=== PATIENT | male | born 1940 | race Caucasian/White ===

== ENCOUNTER → 2016-12-04 10:42 | Outpatient (CLI) | payer MEDICARE ==
[2016-08-06 10:56] VITALS: BMI 38.4
[~2016-12-04 10:42] MED LIST: ADVIL200 MG PO; BAYER ASPIRIN325 MG PO; BP MED; CARDIZEM CD180 MG PO; CLARITIN 10 MG10 MG PO; HYDROCODONE-APA1 TAB PO; LANTUS INSULIN10 ML SC; LIPITOR40 MG PO; MINOCIN100 MG PO; MORPHINE IMMEDI15 MG PO; NIASPAN750 MG PO; NOVOLOG100 U/M1 SC; OMEPRAZOLE20 M1 PO; PROBIOTIC1 EAC1 PO; TRICOR145 MG PO; ULTRAM50 MG PO; VIBRAMYCIN 100100 MG PO; ZESTRIL10 MG PO
== END | disposition home or self-care (01) ==
LOC: D.RT 10:42
DX: J45.909 Unspecified asthma, uncomplicated (principal)

== ENCOUNTER 2017-06-07 10:30 | Emergency (ER) | payer MEDICARE ==
[2016-08-06 10:56] VITALS: BMI 38.4
[2017-06-07 11:10] LABS: BASOPHILS 0.2 % (0-2); EOSINOPHILS 1.7 % (0-7); HEMOGLOBIN 14.3 g/dL (13.5-17.5); IMMATURE GRANULOCYTES 0.4 % (0-5); MCH 33.3 pg (26.0-34.0); MCV 97.9 fL (80.0-100.0); MEAN PLATELET VOLUME 10.7 fL (7.4-10.4); MONOCYTES 7.1 % (2-11); NEUTROPHILS 72.6 % (40-80); RBC 4.29 10x6/uL (4.20-6.10); RDW 13.6 % (11.5-14.5); WBC 12.1 10x3/uL (4.8-10.8)
[2017-06-07 11:13] LABS: PLATELET COUNT 242 10x3/uL (130-400)
[2017-06-07 11:22] LABS: APPEARANCE HAZY (CLEAR); BACTERIA FEW /hpf (NONE SEEN); BILIRUBIN NEGATIVE (NEGATIVE); COLOR YELLOW (YELLOW); EPITHELIAL CELLS OCC /hpf (0-5); GLUCOSE 500 mg/dL (NEGATIVE); KETONE SMALL mg/dL (NEGATIVE); LEUKOCYTE ESTERASE TRACE (NEGATIVE); MUCUS <1+ /lpf (NONE SEEN); NITRITE NEGATIVE (NEGATIVE); PROTEIN NEGATIVE (NEGATIVE); UROBILINOGEN NORMAL (NORMAL)
[2017-06-07 11:30] LABS: ANION GAP 13.7 mmol/L (8-16); BILIRUBIN - TOTAL 0.4 mg/dL (0.2-1.3); CALCIUM 11.3 mg/dL (8.5-10.1); CARBON DIOXIDE 27.1 mmol/L (21.0-32.0); CREATININE - SERUM 1.8 mg/dL (0.6-1.3); POTASSIUM - SERUM 3.8 mmol/L (3.5-5.1); PROTEIN - SERUM 7.1 g/dL (6.4-8.2)
== END 2017-06-07 12:22 | disposition left against medical advice (07) ==
LOC: D.ER 10:30
PROVIDERS: Emergency Medicine
DX: R10.30 Lower abdominal pain, unspecified (principal)

== ENCOUNTER 2017-07-08 05:43 | Day surgery (SDC) | payer MEDICARE ==
[2017-07-07 10:44] LABS: ANION GAP 14.3 mmol/L (8-16); CALCIUM 10.2 mg/dL (8.5-10.1); CARBON DIOXIDE 27.7 mmol/L (21.0-32.0); CREATININE - SERUM 1.4 mg/dL (0.6-1.3)
[2017-07-07 10:59] LABS: HEMATOCRIT 41.2 % (42.0-54.0); MCH 33.3 pg (26.0-34.0); MCV 97.9 fL (80.0-100.0); MEAN PLATELET VOLUME 11.1 fL (7.4-10.4); RBC 4.21 10x6/uL (4.20-6.10); RDW 13.5 % (11.5-14.5)
[~2017-07-08 05:43] MED LIST changes: -BP MED; +CELEBREX200 MG PO; +KLONOPIN0.5 MG PO; +LIPITOR20 MG PO; +NASONEX NASAL S17 GM NS; +REQUIP0.5 MG PO; +SINGULAIR10 MG PO; +SYMBICORT 16010.2 GM INH; +TAZTIA XT360 MG PO; +TRAZODONE HCL50 MG PO; +VITAMIN D31000 UNIT PO
[2017-07-08 06:04] VITALS: BP 149/89; BMI 36.3
[2017-07-08] MEDS ORDERED: PERCOCET 10/3251 TA1 PO (09:44)
--- NOTE | 2017-07-08 11:09 | NUR ---
1020 TO ROOM FROM RR DROWSY AND COMBATIVE FADUMO HELPING PT TO USE BATHROOM,VOIDED
--- NOTE | 2017-07-08 11:11 | NUR ---
WANTING TO GET UP AND SIT ON SIDE OF BED , INFORMED THAT WAS NOT SAFE, PRT CUSSING DOC YELLING , FAMILY AT BEDSIDE, WITH HELP OF LUIS ARMANDO PT SAT UP ON SIDE OF BED, ASKING TO BE DISCHARGE HOME, INFORMED HE NEEDED TO STAY AT LEAST ONE HOUR,REFUSING, IV REMOVED BY RAMBO REYES WITH CATHER TIP INTACT HELD PRESURE TO AREA.
--- NOTE | 2017-07-08 11:21 | NUR ---
AWAKE AND ALERT BEING HELP TO GET DRESS BY LUIS ARMANDO
--- NOTE | 2017-07-12 11:28 | OP ---
PATIENT NAME: MARU CARUSO MEDICAL RECORD: [id number] :40 LOCATION:[facility] ADMISSION DATE: SURGEON: ALEX MUELLER MD DATE OF OPERATION: 07/08/2017 PREOPERATIVE DIAGNOSES: Rotator cuff tear of the right shoulder with impingement syndrome, acromioclavicular arthritis, and biceps tendonitis. POSTOPERATIVE DIAGNOSES: Rotator cuff tear of the right shoulder with impingement syndrome, acromioclavicular arthritis, and biceps tendonitis. PROCEDURES: Right shoulder arthroscopy, arthroscopic rotator cuff repair, arthroscopic biceps tenodesis, arthroscopic distal clavicle excision, arthroscopic subacromial decompression, acromioplasty, and bursectomy. SURGEON: Alex Mueller MD ANESTHESIA: General. INTRAOPERATIVE COMPLICATIONS: None. SUMMARY OF PATHOLOGIC FINDINGS: The patient had a tear essentially from the subscapularis-supraspinatus tendinous junction all the way around to the infraspinatus-teres minor junction. This resulted in multiple points of fixation including SpeedBridge as well as others for reapproximation of the ____ rotator cuff back to its insertion point on the greater tuberosity along with reapproximation of the infraspinatus. Very large profound anterior acromion bone hook was noted along with acromioclavicular arthritis. Biceps tendinitis was profound. OPERATIVE SUMMARY IN DETAIL: After obtaining the appropriate preoperative orthopedic surgery consent as well as anesthetic consultation, evaluation, and clearance, the patient was brought to the operating room and placed on the operating table in supine position. After adequate general laryngeal mask airway anesthesia was administered, the patient was placed in the left lateral decubitus position. All pressure points were well padded to include down leg peroneal pad as well as axillary roll. The patient was held firmly to the operating table using the vacuum pack suction system. The right upper extremity and shoulder were prepped and draped in routine sterile fashion. The arm was held in the Arthrex traction boom at 30 degrees of forward flexion, 30 degrees of abduction, and 10 pounds of traction laterally. Arthroscopy was established in the glenohumeral joint from a posterior portal. Anterior portal was established in the anterior safe interval. Diagnostic arthroscopy did reveal the above findings. At this point, a small accessory incision was created and biceps tendon was cut after sutures were placed through it. It was then tenodesed in the midportion of the bicipital groove using a #9 Arthrex biceps tenodesis screw. The suture protruding from the screw was utilized for reapproximation of the subscapularis-supraspinatus corner, resulted in good reapproximation. These tails were passed and then anchored with a 4.75 SwiveLock from Arthrex. At this point, the march down technique was utilized. The tails from the 4.75 were then placed more posterior into the supraspinatus and anchored laterally with a 5.5 SwiveLock. This was repeated again. At this point, the rotator cuff was repaired back to the original crux ____ where an Arthrex SpeedBridge was then put into place, bringing the residual of the supraspinatus tendon back over the humeral head with good reapproximation. The OPERATIVE REPORT [id number] MARU CARUSO rift between the infraspinatus and teres minor was closed with a #2 FiberTape in a [id number] fashion. Having completed this, subacromial decompression was performed to the acromioclavicular joint and the distal clavicle was excised for 1 cm. Arthroscopy portals and accessory portals were closed in routine interrupted fashion. Sterile dressings were applied. The patient was awakened and taken to the recovery room in stable condition. All final needle and sponge counts were correct. TRANSINT:[id number] Voice Confirmation ID: [id number] DOCUMENT ID: [id number] ALEX MUELLER MD at 1128 CC: [id number] DICTATION DATE: 07/08/17 0949 AUTO INSPECTION SPECIALIST: 07/08/17 1233 [facility] 07/08/17 [address] [place] [address]
== END 2017-07-08 11:30 | disposition home or self-care (01) ==
LOC: D.OPS 05:43
PROVIDERS: Anesthesiology
DX: M75.101 Unspecified rotator cuff tear or rupture of right shoulder, not specified as traumatic (principal); M75.41 Impingement syndrome of right shoulder; M13.811 Other specified arthritis, right shoulder; M75.21 Bicipital tendinitis, right shoulder; Z01.812 Encounter for preprocedural laboratory examination

== ENCOUNTER 2017-07-08 19:15 | Emergency (ER) | payer MEDICARE ==
[2017-07-08 06:04] VITALS: BMI 36.3
[~2017-07-08 19:15] MED LIST changes: +PERCOCET 10/3251 TA1 PO
== END 2017-07-08 20:43 | disposition home or self-care (01) ==
LOC: D.ER 19:15
DX: R33.9 Retention of urine, unspecified (principal); J45.909 Unspecified asthma, uncomplicated; I10 Essential (primary) hypertension; E11.9 Type 2 diabetes mellitus without complications

== ENCOUNTER 2017-07-09 05:58 | Emergency (ER) | payer MEDICARE ==
[2017-07-08 06:04] VITALS: BMI 36.3
== END 2017-07-09 07:33 | disposition home or self-care (01) ==
LOC: D.ER 05:58
DX: R33.9 Retention of urine, unspecified (principal)

== ENCOUNTER → 2018-01-20 08:55 | Outpatient (CLI) | payer MEDICARE | END | disposition home or self-care (01) | LOC: D.CT 08:55 | DX: R10.9 Unspecified abdominal pain (principal) ==

== ENCOUNTER → 2018-04-12 14:22 | Outpatient (CLI) | payer MEDICARE | END | disposition home or self-care (01) | LOC: D.MRI 14:22 | DX: M54.16 Radiculopathy, lumbar region (principal) ==

== ENCOUNTER → 2018-07-18 12:54 | Outpatient (CLI) | payer MEDICARE | END | disposition home or self-care (01) | LOC: D.RT 12:54 | DX: J45.909 Unspecified asthma, uncomplicated (principal) ==

== ENCOUNTER → 2019-02-08 16:34 | Outpatient (CLI) | payer MEDICARE | END | disposition home or self-care (01) | LOC: D.RAD 16:34 | PROVIDERS: ATTEND Internal Medicine Pulmonary Disease | DX: R06.2 Wheezing (principal) ==

== ENCOUNTER → 2019-06-20 10:21 | Outpatient (CLI) | payer MEDICARE ==
--- NOTE | 2019-06-23 15:34 | ST ---
PATIENT:MARU CARUSO MEDICAL RECORD: [id number] SEX: M LOCATION:[facility] ORDER #: ADMISSION DATE: 06/20/19 AGE OF PATIENT: 78 REFERRING PHYSICIAN: INTERPRETING PHYSICIAN: PATRICIA MEAD MD DATE OF SERVICE: 06/20/2019 INDICATION: Angina, shortness of breath, hypertension, hyperlipidemia, and diabetes. He was exercised on standard Lexiscan protocol with 33 mCi of sestamibi injected at peak stress, 11 mCi used previously for rest images. FINDINGS: Gated SPECT reveals preserved ejection fraction at 70% with good wall motioning and thickening and brightening throughout all segments. SPECT imaging: Cardiolite was used as myocardial perfusion agent. There is reversible ischemia inferiorly and laterally. This includes the basal, mid, apical inferior segments as well as the apical lateral and mid lateral, and basal lateral segments. The degree of reversibility is moderate. The amount of myocardium involved is large. OVERALL IMPRESSION: High risk nuclear stress test, large amount of myocardium involved and reversible ischemia laterally as well as inferiorly suggestive of multivessel coronary artery disease. TRANSINT:[id number] Voice Confirmation ID: [id number] DOCUMENT ID: [id number] PATRICIA MEAD MD at 1534 CC: ANNY HYLTON DO [id number] DICTATION DATE: 06/22/192201 STRAW BOSS: 06/23/19 0118 [facility] CLI 06/20/19 [id number] [place] [address]
== END | disposition home or self-care (01) ==
LOC: D.HCCARDIO 06-19 11:30
PROVIDERS: ATTEND Internal Medicine Interventional Cardiology
DX: I25.119 Atherosclerotic heart disease of native coronary artery with unspecified angina pectoris (principal)

== ENCOUNTER 2019-07-06 07:33 | Outpatient (CLI) | payer MEDICARE ==
[~2019-07-06] VITALS: Ht 180.3 cm; Wt 106.8 kg
--- NOTE | ~2019-07-06 | HEMODYNAMI ---
PATIENT:MARU CARUSO MEDICAL RECORD: [id number] : 40 LOCATION:[facility] ADMISSION DATE: 07/06/19 Generatedon:07/06/201913:33 Patient name: MARU CARUSO Patient #: [id number] SSN: [id number] : 1940 Date of study: 07/06/2019 Page: Of Hemodynamic Procedure Report Patient Data Patient Demographics Procedure consent was obtained First Name: MARU Gender: Male Last Name: SHADY : 1940 Middle Initial: W Age: 78 year(s) Patient #: [id number] Race: SSN: [id number] Additional ID: [id number] Contact details [address]: [address] [place] [address] State: [place] City: [place] Zip code: [address] Past Medical History Performed procedures and imaging results Date Procedure Procedure Results Comments Stress testing Positive->Intermediate with SPECT MPI risk Allergies: No known allergies Admission Admission Data Admission Date: 07/06/2019 Admission Time: 7:33 Arrival Date: 07/06/2019 Arrival Time: 0:00 Admit Source: Other Insurance Payor: Medicare Room #: D.CL04 [facility] #: [id number] Height (in.): 71 BSA: 2.29 (m2) Height (cm.): 180.34 BMI: 33.89 (kg/m2) Weight (lbs.): 243 Weight (kg.): 110.22 Lab Results Lab Result Date: 07/06/2019 Lab Result Time: 0:00 Biochemistry Name Units Result Min Max BUN mg/dl 24 --(----)-* 7 18 Creatinine mg/dl 1.3 --(---*)-- 0.6 1.3 eGFR ml/min 57 *-(----)-- 90 120 NONAFRICAN CBC Name Units Result Min Max Hematocrit % 40.4 -*(----)-- 42 54 Hemoglobin g/dl 13.6 --(*---)-- 13.5 17.5 Procedure Procedure Types Cath Procedure Diagnostic Procedure [facility] w/Coronaries Procedure Description Procedure Date Procedure Date: 07/06/2019 Procedure Start Time: 13:18 Procedure End Time: 13:31 Procedure Staff Name Function Maria Elena Amaya RT Monitor Fidelia Dejesus RN Nurse Torsten Clemons MD Performing Physician Ivet rOellana RT Scrub Indication CAD Procedure Data Cath Procedure Fluoroscopy Diagnostic fluoroscopy Total fluoroscopy Time: 1.4 time: 1.4 min min Diagnostic fluoroscopy Total fluoroscopy dose: 603 dose: 603 mGy mGy Contrast Material Contrast Material Type Amount (ml) Isovue 300 72 Entry Location Entry Primary Successful Side Size Upsize Upsize Entry Closure Succes sful Closure Location (Fr) 1 (Fr) 2 (Fr) Remarks Device Remarks Femoral Right 5 Fr Exoseal artery Estimated blood loss: 5 ml Diagnostic catheters Device Type Used For End Catheter Placement MULTIPACK JL 4.0 5Fr Procedure catheter MULTIPACK 3DRC 5Fr Procedure catheter MULTIPACK Pigtail 5 Fr Procedure catheter Procedure Complications No complications Procedure Medications Medication Administration Route Dosage Oxygen etCO2 Nasal cannula 2 l/min Lidocaine 2% added to field 20 Heparin Flush Bag added to field 2 bags (1000units/500ml NS) 0.9% NaCl I.V. 100 ml/hr Versed I.V. 2 mg Fentanyl I.V. 50 mcg Versed I.V. 2 mg Fentanyl I.V. 50 mcg Hemodynamics Rest BSA: 2.29 (m2) HGB: 13.6 (g/dl) O2 Consumption: Estimated: 255.01 (ml/min) O2 Co nsumption indexed: Estimated:111.36 (ml/min/m) Heart Rate: 62 (bpm) Pressure Samples Time Site Value (mmHg) Purpose Heart Use Rate(bpm) 13:25 AO 117/52(81) Pullback 75 13:25 LV 132/-6,20 Pullback 75 Gradients Valve Time Site 1 Site 2 Mean SEP/DFP Peak To Heart Use (mmHg) (sec/min) Peak Rate (mmHg) (bpm) Aortic 13:25 LV AO 35 18 15 75 132/-6,20 117/52(81) Calculations Valve P-P Mean Valve Index Valve Source Name Gradient Area Flow (cm2) Aortic 15 35 15 35 Snapshots Pre Cath Intra NCS Post Cath Vital Signs Time Heart Resp SPO2 etCO2 NIBP (mmHg) Rhythm Pain Sedation Rate (ipm) (%) (mmHg) Status Level (bpm) 13:09:46 64 15 95 0 155/77(100) NSR 0 (11) 10(A) , No pain 13:14:04 65 14 96 19.4 138/86(106) NSR 0 (11) 10(A) , No pain 13:19:12 63 11 95 21.6 131/79(98) NSR 0 (11) 10(A) , No pain 13:23:26 72 16 94 51.6 140/82(105) NSR 0 (11) 9(A) , No pain 13:29:47 76 16 95 19.4 122/82(112) NSR 0 (11) 10(A) , No pain Medications Time Medication Route Dose Verified Delivered Reason Notes Eff ectiveness by by 13:08:02 Oxygen etCO2 2 Torsten Buffie used for Nasal l/min St Paco Dejesus RN procedure cannula 13:08:08 Lidocaine 2% added 20ml Torsten Torsten for local to vial [facility] anesthetic field MD [place] 13:08:14 Heparin Flush added 2 Torsten Torsten used for Bag to bags [facility] procedure (1000units/500ml field MD [place] NS) 13:08:22 0.9% NaCl I.V. 100 Torsten Buffie Per ml/hr St Paco Dejesus RN physician 13:18:42 Versed I.V. 2 mg Torsten Buffie for St Paco Dejesus RN sedation 13:18:48 Fentanyl I.V. 50 Torsten Buff[address] for mcg [facility] Paco Dejesus RN sedation 13:22:01 Fentanyl I.V. 50 Torsten Buff[address] for mcg [facility] Paco Dejesus RN sedation 13:22:57 Versed I.V. 2 mg Torsten Buffie for St Paco Dejesus RN sedation Procedure Log Time Note 12:42:20 Informed consent obtained and on chart 12:42:37 Insurance Payor : Medicare 12:43:15 Arrival Date: 07/06/2019 12:00:00 AM 12:43:18 Admit Source: Other 12:43:28 Patient Height : 71 inches 12:43:33 Patient Weight : 243 lbs 12:47:48 Patient allergic to No known allergies 12:51:17 Lab Result : Creatinine 1.3 mg/dl 12:51:17 Lab Result : BUN 24 mg/dl 12:51:17 Lab Result : Hematocrit 40.4 % 12:51:17 Lab Result : Hemoglobin 13.6 g/dl 12:51:17 Lab Result : eGFR NONAFRICAN 57 ml/min 12:51:34 Diagnostic Cath Status : Elective 12:52:15 Indication : CAD 12:53:08 Procedure Status Elective Heart Cath (OP). 12:53:11 Fidelia Dejesus RN sent for patient. Start room use. 12:53:14 Time tracking: Regular hours (M-F 7:00 - 5:00) 12:53:22 Plan of Care:Hemodynamics will remain stable., Cardiac rhythm will remain stable., Comfort level will be maintained., Respiratory function will remain adequate., Patient/ family verbilizes understanding of procedure., Procedure tolerated without complication., Recovers from procedure without complications.. 13:01:01 Patient received from Pre/Post Procedure Room to CCL 1 Alert and oriented. Tansferred to table in Supine position. 13:01:03 Warm blankets applied, and yenny hugger turned on for patient comfort. 13:01:04 Correct patient and procedure confirmed by team. 13:01:05 ECG and BP/O2 sat monitors applied to patient. 13:07:33 Vital chart was started 13:08:02 Oxygen 2 l/min etCO2 Nasal cannula was administered by Fidelia Djeesus RN; used for procedure; Verbal order read back and verified. 13:08:08 Lidocaine 2% 20ml vial added to field was administered by Torsten Clemons MD; for local anesthetic; Verbal order read back and verified. 13:08:14 Heparin Flush Bag (1000units/500ml NS) 2 bags added to field was administered by Torsten Clemons MD; used for procedure; Verbal order read back and verified. 13:08:22 0.9% NaCl 100 ml/hr I.V. was administered by Fidelia Dejesus RN; Per physician; Verbal order read back and verified. 13:09:04 Baseline sample Acquired. 13:09:07 Rhythm: sinus bradycardia 13:11:18 Full Disclosure recording started 13:11:47 H&P Date Dictated: 06/13/2019 Within 30 days and on chart., H&P Addendum completed by physician on day of procedure. (MUST COMPLETE FOR ALL OUTPATIENTS). 13:11:49 Pre-procedure instructions explained to patient. 13:11:50 Pre-op teaching completed and patient verbalized understanding. 13:11:54 Family in patients room. 13:11:55 Patient NPO since Midnight. 13:11:59 Is patient on blood thinner?No 13:12:00 Patient diabetic? Yes. 13:12:01 If diabetic: On Metformin? No 13:12:05 Previous problem with sedation/anesthesia? No ? 13:12:07 Snore? Yes 13:12:08 Sleep apnea? Yes 13:12:09 Deviated septum? No 13:12:10 Opens mouth fully? Yes 13:12:12 Sticks out tongue? Yes 13:12:36 Airway obstruction? No ? 13:12:38 Dentures? No ? 13:12:43 Pre procedure: right dorsailis pedis pulse 1+ Palpable, but thready & weak; easily obliterated 13:12:47 Patient pain scale 0/10 ?. 13:12:54 IV patent on arrival in right antecubital with 0.9% NaCl at [facility]. 13:13:00 Lab results completed and on chart. 13:13:03 Right groin area was prepped with chlora-prep and draped in sterile fashion 13:13:04 Alarms reviewed by R. N. 13:13:05 Sharps counted by scrub and verified by R.N. 13:17:04 --------ALL STOP TIME OUT------ 13:17:05 Final Timeout: patient, procedure, and site verified with staff and physician. All members of the team are in agreement. 13:17:06 Right groin site verified by team. 13:17:09 Fire Safety Assessment: A--An alcohol-based skin anteseptic being used preoperatively., C--Open oxygen or nitrous oxide is being used., D--An ESU, laser, or fiber-optic light is being used. 13:17:12 Physical assessment completed. ASA score P 2 - A patient with mild systemic disease as per Torsten Clemons MD. 13:17:22 3a) 45-59 Moderately reduced kidney function. 13:17:25 Maximum allowable contrast dose (3.7 X eGFR X 0.75)158 ml. 13:17:28 Sedation plan: IV Moderate Sedation Medication:Versed, Fentanyl 13:18:24 Procedure started. 13:18:42 Versed 2 mg I.V. was administered by Fidelia Dejesus RN; for sedation; Verbal order read back and verified. 13:18:46 Local anesthetic to right femoral artery with Lidocaine 2% by Torsten Clemons MD.INITIAL ACCESS ONLY 13:18:48 Fentanyl 50 mcg I.V. was administered by Fidelia Dejesus RN; for sedation; Verbal order read back and verified. 13:19:04 Use device set Femoral Dx 13:19:04 ACIST Syringe (28763) opened to sterile field. 13:19:05 Bag Decanter (2002S) opened to sterile field. 13:19:06 ACIST Hand Control (07551) opened to sterile field. 13:19:07 ACIST Manifold (75635) opened to sterile field. 13:19:07 Tegaderm 4 x 4 (1626W) opened to sterile field. 13:19:08 Medline Cath Pack ([id number]) opened to sterile field. 13:19:09 DIAGNOSTIC Multipack 5Fr catheter set (AU1454) opened to sterile field. 13:19:10 SHEATH 5FR [place] (PQV525) opened to sterile field. 13:19:10 EMERALD Guide Wire (539-917) opened to sterile field. 13:19:16 Zero performed for pressure channel P1 13:19:25 A 5 Fr sheath was inserted into the Right Femoral artery 13:19:31 Zero performed for pressure channel P1 13:19:36 Zero performed for pressure channel P1 13:20:04 A MULTIPACK JL 4.0 5Fr catheter was advanced over the wire and used for Procedure. 13:22:01 Fentanyl 50 mcg I.V. was administered by Fidelia Dejesus RN; for sedation; Verbal order read back and verified. 13:22:14 LCA angiography performed. 13:22:28 Catheter removed. 13:22:41 A MULTIPACK 3DRC 5Fr catheter was advanced over the wire and used for Procedure. 13:22:57 Versed 2 mg I.V. was administered by Fidelia Dejesus RN; for sedation; Verbal order read back and verified. 13:23:52 RCA angiography performed. 13:23:52 Catheter removed. 13:24:17 A MULTIPACK Pigtail 5 Fr catheter was advanced over the wire and used for Procedure. 13:24:29 LV gram done using SEAMAN 13:24:31 Injector settings: Ml/sec: 10, Volume: 20, 13:24:49 LV hemodynamics recorded. 13:25:11 EF : 55 % 13:25:13 ACCDominant side:Left 13:25:16 EXOSEAL 5Fr (EX500) opened to sterile field. 13:26:09 Sheath removed intact; hemostasis achieved with Exoseal to the Right Femoral artery. 13:26:11 Procedure ended.(Physican Out) 13:27:42 Fluoroscopy time 01.40 minutes. 13:28:19 Flurop Dose total: 603 13:28:19 Fluoroscopy dose: 603 mGy 13:: Dose Area Product 06853 mGy/cm. 13::40 Contrast amount:Isovue 300 72ml. 13:28:43 Maximum allowable dose exceeded? No. 13:28:48 Sharps counted by scrub and verified by R.N. 13:28:53 Post-op/insertion site Right Femoral artery dressed using a 4 x 4 and Tegaderm. 13:29:12 Post-procedure physical assessment completed. ASA score P 3 - A patient with severe systemic disease as per Torsten Clemons MD. 13:29:42 Post procedure rhythm: sinus rhythm 13:29:44 Estimated blood loss: 5 ml 13:29:46 Post procedure instruction explained to patient.Patient verbalizes understanding. 13:29:46 Patient needs reinforcement of post procedure teaching. 13:31:17 Procedure and supply charges have been captured, reviewed, submitted and are correct. 13:31:21 Procedure Complication : No complications 13:31:24 Vital chart was stopped 13:31:24 See physician's report for complete and final results. 13:31:25 Report given to Pre/Post Procedure Room. 13:31:28 Patient transfered to Pre/Post Procedure Room with Bed. 13:31:30 Procedure ended. 13:31:30 Full Disclosure recording stopped 13:31:33 End room use (Document Last) 13:32:36 End room use (Document Last) 13:33:22 End room use (Document Last) Device Usage Item Name Manufacture Quantity Catalog Hospital Part Current Minimal L ot# / Number Charge Number Stock Stock Serial# Code ACIST Acist 1 10346 665529 189475 826192 20 Element Works (26517) Systems Inc Bag Microtek 1 757310 70064 337950 5 Decanter Medical Inc. () ACIST Hand Acist 1 97448 691912 993812 690890 5 Control Medical (89154) Systems Inc ACIST Acist 1 13954 260382 073920 092077 5 Manifold Medical (02580) Systems Inc Tegaderm 4 3M 1 1626W 581723 405030 180823 5 x 4 (1626W) Medline Medline 1 [id number] 581242 66244 042750 5 Cath Pack ([id number]) DIAGNOSTIC Cardinal 1 GQ3124 797146 99600 763025 30 Multipack Health 5Fr catheter set (XM8106) SHEATH 5FR Terumo 1 HQB904 335331 491399 985352 5 [place] (IKV532) EMERALD Cardinal 1 502-455 596227 492644 706906 5 Guide Wire Health (502455) MULTIPACK Cardinal 1 899550 5 JL 4.0 5Fr Health catheter MULTIPACK Cardinal 1 372698 5 3DRC 5Fr Health catheter MULTIPACK Cardinal 1 943037 5 Pigtail 5 Health Fr catheter EXOSEAL 5Fr Cardinal 1 EX500 048010 785876 228531 10 (EX500) Health Signature Audit [place] Stage Time Signature Unsigned Intra-Procedure 07/06/2019 Maria Elena Amaya 1:32:36 PM RT(R) Intra-Procedure 07/06/2019 Fidelia Dejesus RN 1:33:22 PM Intra-Procedure 07/06/2019 Torsten Hawk 1:33:49 PM Pac[address] [place] [address]
[2019-07-06 11:24] VITALS: BP 143/90; Ht 180.3 cm; Wt 106.8 kg
[2019-07-06 11:44] LABS: BASOPHILS 0.4 % (0-2); EOSINOPHILS 2.7 % (0-7); HEMATOCRIT 40.4 % (42.0-54.0); HEMOGLOBIN 13.6 g/dL (13.5-17.5); IMMATURE GRANULOCYTES 0.1 % (0-5); LYMPHOCYTES 27.9 % (15-50); MCH 31.8 pg (26.0-34.0); MCHC 33.7 g/dL (31.0-37.0); MCV 94.4 fL (80.0-100.0); MEAN PLATELET VOLUME 10.5 fL (7.4-10.4); MONOCYTES 7.7 % (2-11); NEUTROPHILS 61.2 % (40-80); PLATELET COUNT 243 10x3/uL (130-400); RBC 4.28 10x6/uL (4.20-6.10); RDW 13.8 % (11.5-14.5); WBC 7.7 10x3/uL (4.8-10.8)
[2019-07-06 12:08] LABS: ANION GAP 12.8 mmol/L (8-16); CALCIUM 9.5 mg/dL (8.5-10.1); CHOL - HDL RATIO 3.2 ratio (2.3-4.9); CREATININE - SERUM 1.3 mg/dL (0.6-1.3); LDL-HDL RATIO 1.9 ratio (1.5-3.5); POTASSIUM - SERUM 3.8 mmol/L (3.5-5.1)
--- NOTE | 2019-07-06 13:58 | NUR ---
RECEIVED PT FROM TV HOST, PT IS SLEEPING, AWAKENS EASILY. DRESSING CDI TO RIGHT GROIN, AREA IS SOFT AND NONTENDER. PEDAL PULSES PALPABLE. NSR, RATE IS 65. RESP WITH EASE ON O2 AT 2LPM VIA NC. HOB IS FLAT, BED LOCKED AND LOW. CALL LIGHT IN REACH.
--- NOTE | 2019-07-06 14:01 | NUR ---
DRESSING CDI, PEDAL PULSES PALPABLE, HOB IS FLAT. VSS, CALL LIGHT IN REACH.
--- NOTE | 2019-07-06 14:10 | NUR ---
PT SLEEPING, RESP WITH EASE ON O2 AT 2LPM VIA NC. DRESSING CDI, VSS. HOB IS FLAT.
--- NOTE | 2019-07-06 14:26 | NUR ---
DRESSING CDI, PEDAL PULSES PALPABLE. SINUS ROMMEL AT 56. RESP WITH EASE ON O2 AT 2LPM VIA NC.
--- NOTE | 2019-07-06 15:06 | NUR ---
HOB ELEVATED 30 DEGREES, DRESSING IS CDI TO RIGHT GROIN, AREA IS SOFT AND NONTENDER. PEDAL PULSES PALPABLE. PT AWAKENS EASILY ABND DENIES ANY C/O.
--- NOTE | 2019-07-06 15:54 | NUR ---
HOB HAS BEEN FULLY ELEVATED. PT TORITO SANDWICH AND PO FLUIDS, FALLS BACK TO SLEEP EASILY. DENIES ANY C/O. AWAITING A PHONE CALL FROM WITH INFORMATION FOR A FRIEND TO TAKE PT HOME FROM HOSPITAL.
--- NOTE | 2019-07-06 16:26 | NUR ---
PT HAS TORITO 100% OF SANDWICH. DENIES ANY C/O PAIN OR NAUSEA. DRESSING CDI TO RIGHT GROIN, PEDAL PULSES PALPABLE. IV DC'D WITH CATH INTACT AND ASSISTED PT WITH DRESSING FOR DC TO HOME. DC INSTRUCTIONS HAVE BEEN REVIEWED WITH PT WHO VERBALIZES UNDERSTANDING AND PT HAS WRITTEN COPIES. AWAITING PT'S RIDE HOME.
--- NOTE | 2019-07-06 17:05 | NUR ---
PT SITTING UP IN CHAIR IN ROOM, AWAITING FRIENDS TO PICK HIM UP. DENIES ANY C/O AT THIS TIME.
--- NOTE | 2019-07-06 17:46 | NUR ---
1722 PT HAS AMBULTED TO THE BATHROOM AND VOIDED QS. DENIES ANY C/O. PT ESCORTED TO PRIVATE AUTO VIA WC BY NURSE WITH FRIEND, MELIDA GIANLUCA, DRIVING HIM HOME. PT HAS ALL PERSONAL BELONGINGS AND DC INSTRUCTIONS UPON DISCHARGE.
--- NOTE | 2019-07-07 12:40 | OP ---
PATIENT NAME: MARU CARUSO MEDICAL RECORD: [id number] :40 LOCATION:D.[facility] ADMISSION DATE: SURGEON: LAZ SAVAGE MD DATE OF OPERATION: 07/06/2019 PROCEDURE: Left heart catheterization, selective coronary angiography, right femoral artery approach. CATHETERS: A 5-Italian sheath, 5/4 left and right Judkin's. 5/4 pig. The procedure was well tolerated. The patient was returned to [place]. Sheath removed. ExoSeal device placed. FINDINGS: Left ventriculography in 30-degree SEAMAN view: Normal wall motion, normal systolic function. CORONARY ANATOMY: LEFT MAIN: Left main is free of disease. LAD: The area of previous stenting is widely patent. No progression of [place]ed[place] disease. CIRCUMFLEX: No progression of [place] disease. RIGHT CORONARY ARTERY: Totally occluded. Fills well via left to right collaterals. IMPRESSION: Totally occluded right with good collateral flow, widely patent stent, no evidence of restenosis and no progression of [place] disease. TRANSINT:[id number] Voice Confirmation ID: [id number] DOCUMENT ID: [id number] LAZ SAVAGE MD at 1240 CC: [id number] DICTATION DATE: 07/06/19 1331 [place] ERECTOR: 07/06/19 1401 DEP CLI 07/06/19 [facility] [address] [facility] [place] [address]
== END 2019-07-06 17:22 | disposition home or self-care (01) ==
LOC: D.CATH 07:33 → D.CLR 10:58 → D.CATH 13:00
PROVIDERS: ATTEND Internal Medicine Interventional Cardiology
DX: I25.110 Atherosclerotic heart disease of native coronary artery with unstable angina pectoris (principal); R94.30 Abnormal result of cardiovascular function study, unspecified

== ENCOUNTER 2020-01-09 11:18 | Emergency (ER) | payer MEDICARE ==
[~2020-01-09] VITALS: Ht 180.3 cm; Wt 106.8 kg
[2020-01-09 11:28] VITALS: BP 118/62; Ht 180.3 cm; Wt 106.8 kg
== END 2020-01-09 12:27 | disposition home or self-care (01) ==
LOC: D.ER 11:18
DX: R06.02 Shortness of breath (principal); E11.9 Type 2 diabetes mellitus without complications; I10 Essential (primary) hypertension; J45.909 Unspecified asthma, uncomplicated; K21.9 Gastro-esophageal reflux disease without esophagitis; Z79.4 Long term (current) use of insulin; Z53.29 Procedure and treatment not carried out because of patient's decision for other reasons

== ENCOUNTER → 2020-01-15 09:54 | Outpatient (CLI) | payer MEDICARE ==
[2020-01-09 11:28] VITALS: BMI 32.8
--- NOTE | ~2020-01-15 | ST ---
PATIENT:MARU CARUSO MEDICAL RECORD: [id number] SEX: M LOCATION:[facility] ORDER #: ADMISSION DATE: 01/15/20 AGE OF PATIENT: 79 REFERRING PHYSICIAN: INTERPRETING PHYSICIAN: PATRICIA MEAD MD DATE OF SERVICE: 01/15/2020 INDICATION: Angina, coronary artery disease, and hypertension. She was exercised on standard Lexiscan protocol with 33 mCi of sestamibi injected at peak stress, 11 mCi used previously for rest images. FINDINGS: Gated SPECT reveals preserved ejection fraction at 67% with good wall motion and thickening and brightening throughout all segments. SPECT IMAGING: Cardiolite was used as myocardial perfusion agent. There is reversibility inferiorly. This includes the basal, mid, apical, and inferior segments. The degree of reversibility is moderate to severe. The amount of myocardium involved is moderate. OVERALL IMPRESSION: 1. This is an intermediate risk abnormal nuclear stress test with reversibility inferiorly. 2. Gated SPECT reveals a preserved ejection fraction greater than 60%. In this patient with ongoing symptomatology, the current scan does suggest the presence of hemodynamically significant coronary artery disease. TRANSINT:[id number] Voice Confirmation ID: [id number] DOCUMENT ID: [id number] PATRICIA MEAD MD CC: ANNY HYLTON DO [id number] DICTATION DATE: 01/16/20 1115 EDGER MACHINE SETTER: 01/16/201923 DEP CLI 01/15/20 [facility] [address] [place] [address]
== END | disposition home or self-care (01) ==
LOC: D.HCCARDIO 09:54
PROVIDERS: ATTEND Internal Medicine Cardiovascular Disease
DX: I25.10 Atherosclerotic heart disease of native coronary artery without angina pectoris (principal)

== ENCOUNTER 2020-01-23 10:55 | Outpatient (CLI) | payer MEDICARE ==
[~2020-01-23] VITALS: Ht 180.3 cm; Wt 107.7 kg
--- NOTE | ~2020-01-23 | HEMODYNAMI ---
PATIENT:MARU CARUSO MEDICAL RECORD: [id number] : 40 LOCATION:[facility] ADMISSION DATE: 01/23/20 Generatedon:01/23/202013:11 Patient name: MARU CARUSO Patient #: [id number] SSN: [id number] : 1940 Date of study: 01/23/2020 Page: Of Hemodynamic Procedure Report Patient Data Patient Demographics Procedure consent was obtained First Name: MARU Gender: Male Last Name: SHADY : 1940 Middle Initial: W Age: 79 year(s) Patient #: [id number] Race: SSN: [id number] Additional ID: [id number] Contact details [address]: [address] [place] [address] State: [place] City: [place] Zip code: [address] Past Medical History Allergies: No known allergies Admission Admission Data Admission Date: 01/23/2020 Admission Time: 10:55 Arrival Date: 01/23/2020 Arrival Time: 0:00 Admit Source: Other Insurance Payor: Medicare HIC #: [id number] Height (in.): 70.87 BSA: 2.27 (m2) Height (cm.): 180 BMI: 33.33 (kg/m2) Weight (lbs.): 238.1 Weight (kg.): 108 Lab Results Lab Result Date: 01/23/2020 Lab Result Time: 0:00 Biochemistry Name Units Result Min Max BUN mg/dl 25 --(----)-* 7 18 Creatinine mg/dl 1.3 --(---*)-- 0.6 1.3 eGFR ml/min 56 *-(----)-- 90 120 NONAFRICAN CBC Name Units Result Min Max Hematocrit % 39 *-(----)-- 42 54 Hemoglobin g/dl 12.5 *-(----)-- 13.5 17.5 Procedure Procedure Types Cath Procedure Diagnostic Procedure C [facility] w/Coronaries Sedation Charges Moderate Sedation up to 15 minutes Procedure Description Procedure Date Procedure Date: 01/23/2020 Procedure Start Time: 13:00 Procedure End Time: 13:08 Procedure Staff Name Function Torsten Clemons MD Performing Physician Antoinette Child RN Nurse Yesica Ambrose RT Scrub Maria Elena Amaya RT Plaster Maker Ivet Orellana RT Monitor Procedure Data Cath Procedure Fluoroscopy Diagnostic fluoroscopy Total fluoroscopy Time: 1 time: 1 min min Diagnostic fluoroscopy Total fluoroscopy dose: 403 dose: 403 mGy mGy Contrast Material Contrast Material Type Amount (ml) Isovue 370 60 Entry Location Entry Primary Successful Side Size Upsize Upsize Entry Closure Succes sful Closure Location (Fr) 1 (Fr) 2 (Fr) Remarks Device Remarks Femoral Right 5 Fr Exoseal artery Estimated blood loss: 5 ml Diagnostic catheters Device Type Used For End Catheter Placement MULTIPACK JL 4.0 5Fr Procedure catheter MULTIPACK 3DRC 5Fr Procedure catheter MULTIPACK Pigtail 5 Fr Procedure catheter Procedure Complications No complications Procedure Medications Medication Administration Route Dosage 0.9% NaCl I.V. 100 ml/hr Oxygen etCO2 Nasal cannula 2 l/min Lidocaine 2% added to field 20 Heparin Flush Bag added to field 2 bags (1000units/500ml NS) Versed I.V. 2 mg Fentanyl I.V. 50 mcg Fentanyl I.V. 50 mcg Hemodynamics Rest BSA: 2.27 (m2) HGB: 12.5 (g/dl) O2 Consumption: Estimated: 246.31 (ml/min) O2 Co nsumption indexed: Estimated:108.51 (ml/min/m) Heart Rate: 55 (bpm) Pressure Samples Time Site Value (mmHg) Purpose Heart Use Rate(bpm) 13:05 LV 205/-14,114 Snapshot 58 13:05 AO 143/58(92) Pullback 55 13:05 LV 150/15,32 Pullback 55 Gradients Valve Time Site 1 Site 2 Mean SEP/DFP Peak To Heart Use (mmHg) (sec/min) Peak Rate (mmHg) (bpm) Aortic 13:05 LV AO 21 15 7 55 150/15,32 143/58(92) Calculations Valve P-P Mean Valve Index Valve Source Name Gradient Area Flow (cm2) Aortic 7 21 7 21 Snapshots Pre Cath Intra NCS Post Cath Vital Signs Time Heart Resp SPO2 etCO2 NIBP (mmHg) Rhythm Pain Sedation Rate (ipm) (%) (mmHg) Status Level (bpm) 12:51:40 62 22 96 0 147/80(119) NSR 0 (11) 10(A) , No pain 12:56:06 52 21 97 15.1 145/71(100) SB 0 (11) 10(A) , No pain 13:01:05 55 22 98 21.9 Measuring SB 0 (11) 10(A) , No pain 13:01:20 48 17 98 27.2 145/73(120) SB 0 (11) 10(A) , No pain 13:05:44 55 16 98 11.3 151/75(123) SB 0 (11) 10(A) , No pain Medications Time Medication Route Dose Verified Delivered Reason Notes Eff ectiveness by by 12:51:03 0.9% NaCl I.V. 100 Torsten Antoinette used for ml/hr Kaci Mateusz procedure MD REYES 12:51:09 Oxygen etCO2 2 Torsten Antoinette used for Nasal l/min Kaci Mateusz procedure cannula MD REYES 12:51:13 Lidocaine 2% added 20ml Torsten Sarmiento for local to vial [facility] anesthetic field MD [place] 12:51:17 Heparin Flush added 2 Torsten [facility]sten [facility] ([facility]/500[facility] field MD [place] NS) 12:57:31 Versed I.V. 2 mg Torsten Antoinette for Kaci Mateusz sedation MD REYES 12:57:42 Fentanyl I.V. 50 Torsten Antoinette for mcg KaciPaco Child sedation MD REYES 13:03:35 Fentanyl I.V. 50 Torsten Antoinette for mcg KaciPaco Child sedation MD REYEShand spring repairer Log Time Note 12:21:50 Informed consent obtained and on chart 12:21:58 Arrival Date: 01/23/2020 12:00:00 AM 12:22:21 Insurance Payor : Medicare 12:22:28 Patient Height : 70.87 inches 12:22:33 Patient Weight : 238.1 lbs 12:24:03 Lab Result : eGFR NONAFRICAN 56 ml/min 12:24:03 Lab Result : Creatinine 1.3 mg/dl 12:24:03 Lab Result : BUN 25 mg/dl 12:24:03 Lab Result : Hematocrit 39 % 12:24:03 Lab Result : Hemoglobin 12.5 g/dl 12:33:46 Procedure Status Elective Heart Cath (OP). 12:33:48 Time tracking: Regular hours (M-F 7:00 - 5:00) 12:33:51 Plan of Care:Hemodynamics will remain stable., Cardiac rhythm will remain stable., Comfort level will be maintained., Respiratory function will remain adequate., Patient/ family verbilizes understanding of procedure., Procedure tolerated without complication., Recovers from procedure without complications.. 12:34:14 H&P Date Dictated: 01/10/2020 Within 30 days and on chart., H&P Addendum completed by physician on day of procedure. (MUST COMPLETE FOR ALL OUTPATIENTS). 12:34:23 Patient allergic to No known allergies 12:36:34 Maria Elnea Amaya RT(R) sent for patient. Start room use. 12:44:17 Patient received from Pre/Post Procedure Room to CCL 1 Alert and oriented. Tansferred to table in Supine position. 12:44:18 Warm blankets applied, and yenny hugger turned on for patient comfort. 12:44:18 Correct patient and procedure confirmed by team. 12:44:19 ECG and BP/O2 sat monitors applied to patient. 12:50:22 Admit Source: Other 12:50:25 Vital chart was started 12:50:25 Full Disclosure recording started 12:50:26 Pre-procedure instructions explained to patient. 12:50:27 Pre-op teaching completed and patient verbalized understanding. 12:50:29 Family unavailable. 12:50:31 Patient NPO since Midnight. 12:50:35 Is the patient allergic to Iodine/contrast media? No. 12:50:39 Was the patient premedicated? N/A 12:50:41 Is patient on blood thinner?No 12:50:43 Patient diabetic? Yes. 12:50:45 If diabetic: On Metformin? No 12:50:47 ----Pre-sedation anethsthesia assessment.---- 12:50:49 Previous problem with sedation/anesthesia? No ? 12:50:50 Snore? Yes 12:50:51 Sleep apnea? Yes 12:50:52 Deviated septum? No 12:50:53 Opens mouth fully? Yes 12:50:54 Sticks out tongue? Yes 12:51:03 0.9% NaCl 100 ml/hr I.V. was administered by Antoinette Child RN; used for procedure; Verbal order read back and verified. 12:51:09 Oxygen 2 l/min etCO2 Nasal cannula was administered by Antoinette Child RN; used for procedure; Verbal order read back and verified. 12:51:13 Lidocaine 2% 20ml vial added to field was administered by Torsten Clemons MD; for local anesthetic; Verbal order read back and verified. 12:51:17 Heparin Flush Bag (1000units/500ml NS) 2 bags added to field was administered by Torsten Clemons MD; used for procedure; Verbal order read back and verified. 12:51:33 Airway obstruction? No ? 12:51:36 Dentures? No ? 12:51:48 Pre procedure: right dorsailis pedis pulse 1+ Palpable, but thready & weak; easily obliterated 12:51:51 Patient pain scale 0/10 ?. 12:52:19 Lab results completed and on chart. 12:52:23 Stress Test: no; N/A ? 12:52:28 Right groin area was prepped with chlora-prep and draped in sterile fashion 12:52:32 Alarms reviewed by R. N. 12:52:32 Sharps counted by scrub and verified by R.N. 12:52:51 IV patent on arrival in right antecubital with 0.9% NaCl at KVO. 12:53:04 Baseline sample Acquired. 12:53:14 Rhythm: sinus bradycardia 12:53:19 Use device set Femoral Dx 12:53:20 ACIST Syringe (47697) opened to sterile field. 12:53:21 Bag Decanter (2002) opened to sterile field. 12:53:22 Medline Cath Pack ([id number]) opened to sterile field. 12:53:23 ACIST Hand Control (76495) opened to sterile field. 12:53:24 ACIST Manifold (44985) opened to sterile field. 12:53:24 DIAGNOSTIC Multipack 5Fr catheter set (HQ5946) opened to sterile field. 12:53:26 SHEATH 5FR Spreckels (GUO951) opened to sterile field. 12:53:26 EMERALD Guide Wire (596-400) opened to sterile field. 12:55:14 Risk of Mortality: 2.5 12:55:18 Risk of blood transfusion: 1.0 12:55:45 Risk of INEZ: 5.5 12:56:58 --------ALL STOP TIME OUT------ 12:56:59 Final Timeout: patient, procedure, and site verified with staff and physician. All members of the team are in agreement. 12:57:00 Right groin site verified by team. 12:57:05 Fire Safety Assessment: A--An alcohol-based skin anteseptic being used preoperatively., C--Open oxygen or nitrous oxide is being used., D--An ESU, laser, or fiber-optic light is being used. 12:57:10 Physical assessment completed. ASA score P 2 - A patient with mild systemic disease as per Torsten Clemons MD. 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 12:57:19 Maximum allowable contrast dose (3.7 X eGFR X 0.75)155 ml. 12:57:25 Sedation plan: IV Moderate Sedation Medication:Versed, Fentanyl, Propofol 12:57:31 Versed 2 mg I.V. was administered by Antoinette Child RN; for sedation; Verbal order read back and verified. 12:57:42 Fentanyl 50 mcg I.V. was administered by Antoinette Child RN; for sedation; Verbal order read back and verified. 13:00:45 Procedure started. 13:00:48 Local anesthetic to right femoral artery with Lidocaine 2% by Torsten Clemons MD.INITIAL ACCESS ONLY 13:00:53 A MULTIPACK JL 4.0 5Fr catheter was advanced over the wire and used for Procedure. 13:02:04 A 5 Fr sheath was inserted into the Right Femoral artery 13:02:07 LCA angiography performed. 13:02:17 Injector settings: Ml/sec: 3, Volume: 6, 13:03:19 Catheter removed. 13:03:29 A MULTIPACK 3DRC 5Fr catheter was advanced over the wire and used for Procedure. 13:03:35 Fentanyl 50 mcg I.V. was administered by Antoinette Child RN; for sedation; Verbal order read back and verified. 13:04:10 RCA angiography performed. 13:04:16 Injector settings: Ml/sec: 3, Volume: 6, 13:04:19 ACCDominant side:Left 13:04:21 Catheter removed. 13:04:27 A MULTIPACK Pigtail 5 Fr catheter was advanced over the wire and used for Procedure. 13:05:01 LV gram done using SEAMAN 13:05:21 LV hemodynamics recorded. 13:05:24 Injector settings: Ml/sec: 5, Volume: 15, 13:05:30 EF : 50 % 13:05:39 Catheter removed. 13:05:46 EXOSEAL 5Fr (EX500) opened to sterile field. 13:05:59 Sheath removed intact; hemostasis achieved with Exoseal to the Right Femoral artery. 13:06:07 Fluoroscopy time 01.00 minutes. 13:06:11 Flurop Dose total: 403 13:06:11 Fluoroscopy dose: 403 mGy 13:06:18 Dose Area Product 90244 mGy/cm. 13:06:20 Procedure ended.(Physican Out) 13:06:55 Contrast amount:Isovue 370 60ml. 13:06:58 Maximum allowable dose exceeded? No. 13:06:59 Sharps counted by scrub and verified by R.N. 13:07:04 Post-op/insertion site Right Femoral artery dressed using a 4 x 4 and Tegaderm. 13:07:09 Post right femoral artery:stable, soft, clean and dry 13:07:12 Post Procedure Pulses reassessed and unchanged 13:07:16 Post procedure: right dorsailis pedis pulse 1+ Palpable, but thready & weak; easily obliterated. 13:07:19 Post-procedure physical assessment completed. ASA score P 2 - A patient with mild systemic disease as per Torsten Clemons MD. 13:07:22 Post procedure rhythm: unchanged. 13:07:25 Estimated blood loss: 5 ml 13:07:26 Post procedure instruction explained to patient.Patient verbalizes understanding. 13:07:27 Patient needs reinforcement of post procedure teaching. 13:07:47 Procedure type changed to Cath procedure, Diagnostic procedure, LHC, [facility] w/Coronaries, Sedation Charges, Moderate Sedation up to 15 minutes 13:08:30 Procedure and supply charges have been captured, reviewed, submitted and are correct. 13:08:34 Procedure Complication : No complications 13:08:36 Vital chart was stopped 13:08:38 [facility] Findings: mild to moderate CAD (<70%) 13:08:39 Operative report dictated upon procedure completion. 13:08:40 See physician's report for complete and final results. 13:08:44 Report given to Pre/Post Procedure Room. 13:08:47 Patient transfered to Pre/Post Procedure Room with Stretcher. 13:08:50 Procedure ended. 13:08:50 Full Disclosure recording stopped 13:09:59 End room use (Document Last) Device Usage Item Name Manufacture Quantity Catalog Hospital Part Current Minimal L ot# / Number Charge Number Stock Stock Serial# Code ACIST Acist 1 98682 247117 896725 688521 20 Syringe Medical (13666) Systems Inc Bag Microtek 1 2001S 541546 09239 441624 5 Decanter Medical Inc. () Medline Medline 1 [id number] 575314 52561 642552 5 Cath Pack ([id number]) ACIST Hand Acist 1 75754 986299 467718 492991 5 Control Medical (99526) Systems Inc ACIST Acist 1 02155 696720 805557 453888 5 Manifold Medical (22332) Systems Inc DIAGNOSTIC Cardinal 1 OG9722 219953 71768 253229 30 Multipack Health 5Fr catheter set (PZ3348) SHEATH 5FR Terumo 1 HIB090 407710 643185 810392 5 Spreckels (EWC018) EMERALD Cardinal 1 502-455 651114 044460 130361 5 Guide Wire Health (502-455) MULTIPACK Cardinal 1 263434 5 JL 4.0 5Fr Health catheter MULTIPACK Cardinal 1 578969 5 3DRC 5Fr Health catheter MULTIPACK Cardinal 1 619458 5 Pigtail 5 Health Fr catheter EXOSEAL 5Fr Cardinal 1 EX500 175740 319913 447821 10 (EX500) Health Signature Audit [place] Stage Time Signature Unsigned Intra-Procedure 01/23/2020 Ivet Orellana 1:10:28 PM RT(R) Intra-Procedure 01/23/2020 Antoinette Child 1:10:45 PM RN Intra-Procedure 01/23/2020 Torsten Hawk 1:10:58 PM Paco [place] [facility] [address] [place] [address]
[2020-01-23] MEDS ORDERED: SENNA LAXATIVE8.6 MG PO (11:14)
[2020-01-23] MEDS ORDERED: VOLTAREN100 GM TOPICAL (11:14)
[2020-01-23] MEDS ORDERED: SUBOXONE 2 MG-01 TAB SL (11:15)
[2020-01-23] MEDS ORDERED: ROPINIROLE HCL0.5 MG PO (11:15)
[2020-01-23] MEDS ORDERED: KLONOPIN0.5 MG PO (11:16)
[2020-01-23] MEDS ORDERED: COZAAR100 MG PO (11:17)
[2020-01-23] MEDS ORDERED: TOUJEO SOL300 UNIT/1 SC (11:17)
[2020-01-23] MEDS ORDERED: VIBRAMYCIN50 MG PO ×2 (11:18)
[2020-01-23 11:22] VITALS: BP 143/68; Ht 180.3 cm; Wt 107.7 kg
[2020-01-23 11:42] LABS: BASOPHILS 0.8 % (0-2); EOSINOPHILS 6.3 % (0-7); HEMOGLOBIN 12.5 g/dL (13.5-17.5); IMMATURE GRANULOCYTES 0.3 % (0-5); LYMPHOCYTES 32.3 % (15-50); MCH 31.6 pg (26.0-34.0); MCHC 32.1 g/dL (31.0-37.0); MCV 98.7 fL (80.0-100.0); MEAN PLATELET VOLUME 10.9 fL (7.4-10.4); MONOCYTES 7.9 % (2-11); NEUTROPHILS 52.4 % (40-80); PLATELET COUNT 229 10x3/uL (130-400); RBC 3.95 10x6/uL (4.20-6.10); RDW 13.4 % (11.5-14.5); WBC 7.1 10x3/uL (4.8-10.8)
[2020-01-23 11:59] LABS: ANION GAP 10.9 mmol/L (8-16); CALCIUM 9.3 mg/dL (8.5-10.1); CARBON DIOXIDE 27.1 mmol/L (21.0-32.0); CHOL - HDL RATIO 2.9 ratio (2.3-4.9); CREATININE - SERUM 1.3 mg/dL (0.6-1.3); LDL-HDL RATIO 1.7 ratio (1.5-3.5)
--- NOTE | 2020-01-23 13:25 | NUR ---
REC'D TO ROOM 5 VIA STRETCHER FROM GARAGE DOOR OPENER INSTALLER. MONITORS ESTAB. SEE DEVOPS DEVELOPER. PT DROWSY, COOPERATIVE. ALARMS ON AND C/L IN REACH.
[2020-01-23] MEDS ORDERED: MIDODRINE HCL5 MG PO (13:37)
--- NOTE | 2020-01-23 13:40 | NUR ---
R GROIN SITE SOFT, C/D/I, NO S/S BLEEDING OR HEMATOMA. PULSES PALP, FEET WARM. ALARMS ON AND C/L IN REACH.
--- NOTE | 2020-01-23 14:10 | NUR ---
R GROIN SITE SOFT, NO S/S BLEEDING OR HEMATOMA. PT RESTING QUIETLY, VSS. ALARMS ON AND C/L IN REACH.
--- NOTE | 2020-01-23 14:20 | NUR ---
SPOKE WITH MELIDA HOUGH PER PT REQUEST - HE WILL BE PICKING UP PT AT 1515.
--- NOTE | 2020-01-23 14:25 | NUR ---
R GROIN SITE SOFT, C/D/I, NO S/S BLEEDING OR HEMATOMA. HOB ELEVATED, PT GIVEN SPRITE PER PT REQUEST. VSS. C/L IN REACH.
--- NOTE | 2020-01-23 15:03 | NUR ---
R GROIN SITE SOFT, C/D/I, NO S/S BLEEDING OR HEMATOMA. PIV D/C'D INTACT. PT ALLOWED UP TO GET DRESSED.
--- NOTE | 2020-01-23 15:10 | NUR ---
ALL DISCHARGE INSTRUCTIONS REVIEWED WITH PT INCLUDING RESTRICTIONS, FOLLOW-UP AND NEW MEDICATION. PT UP TO BR INDEPENDENTLY.
--- NOTE | 2020-01-23 15:20 | NUR ---
PT D/C'D VIA TO INDEPENDENT VEHICLE WITH ALL PAPER WORK AND BELONGINGS.
--- NOTE | 2020-01-24 09:08 | OP ---
PATIENT NAME: MARU CARUSO MEDICAL RECORD: [id number] :40 LOCATION:D.CAT ADMISSION DATE: SURGEON: LAZ SAVAGE MD DATE OF OPERATION: PROCEDURE: Left heart catheterization, selective coronary angiography, right femoral artery approach. CATHETERS: A 5-Algerian sheath, 5/4 left and right Lesa, 5/4 pig. The procedure was well tolerated. The patient returned to the gresham. Sheath removed. ExoSeal device was placed. FINDINGS: Left ventriculography in 30-degree SEAMAN view; normal wall motion and normal systolic function. CORONARY ANATOMY: LEFT MAIN: Left main is free of disease as is diagonal system. CIRCUMFLEX: This shows some luminal irregularities, but no flow obstructive disease. RIGHT CORONARY ARTERY: Totally occluded, fills via left to right collaterals. 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 Left ventricular function remains normal. PLAN: Continue medical therapy. TRANSINT:[id number] Voice Confirmation ID: [id number] DOCUMENT ID: [id number] LAZ SAVAGE MD at 0908 CC: [id number] DICTATION DATE: 01/23/20 1314 NUCLEAR MEDICINE OFFICER: 01/23/20 1332 DEP CLI 01/23/20 [facility] [place] [address] [place] [address]
== END 2020-01-23 14:20 | disposition home or self-care (01) ==
LOC: D.CATH 10:55
PROVIDERS: ATTEND Internal Medicine Interventional Cardiology
DX: I25.10 Atherosclerotic heart disease of native coronary artery without angina pectoris (principal); I10 Essential (primary) hypertension; I95.1 Orthostatic hypotension; E11.9 Type 2 diabetes mellitus without complications; Z79.4 Long term (current) use of insulin; E78.5 Hyperlipidemia, unspecified; I25.82 Chronic total occlusion of coronary artery

== ENCOUNTER 2020-02-21 15:40 | Inpatient (IN) | payer MEDICARE ==
[~2020-02-21] VITALS: Ht 180.3 cm; Wt 107.5 kg
--- NOTE | ~2020-02-21 | CN ---
PATIENT NAME:MARU MAYEN MEDICAL RECORD: [id number] : 40 LOCATION:D. D.2105 ADMIT DATE: 02/22/20 ACCOUNT: [id number] CONSULTING PHYSICIAN: MARLENE KEENE MD REFERRING PHYSICIAN: ANNY HYLTON DO DATE OF CONSULTATION: 02/26/2020 REASON FOR THE CONSULT: Dizziness. HISTORY OF PRESENT ILLNESS: Mr. Mayen was admitted just about a week ago to the hospital. At that time, he was complaining of possibly taken too much medication. He had an accidental overdose, although it may not have been significant, but he was minding his symptoms on that. He had dizziness, nausea and vomiting. He says that for the first couple of days he was very dizzy any position he was in and head movement made it worse where he would get nauseous and vomit if he moved his head. Lying down, sitting down and standing up all the same, he just had to be really still. He has had somewhat of a headache, although not exactly, just really describe some musculature on the posterior aspect of his neck on both sides, felt kind of tight and burning and that has been kind of slowly building for a couple of months. He thought that might be related as well. He wears hearing aids. He has a history of tinnitus, but says his hearing is pretty much the same, nothing has changed with the tinnitus or the hearing. He has no lateralizing ear symptoms. He has had a CT of the head, which was unremarkable. He has had carotid Dopplers, which I believe are unremarkable. He is scheduled for an MRI, it sounds like nothing has really shown up. He has had some cardiac issues they have been checking on. His medications pretty much stayed the same thing, nothing new. He says that now he is 100 times better. He said he just got finished, got up, walked around the whole nurses station around the whole floor, came back to bed and was able to do that and he feels like he was okay to go home. At this point, he says he has no dizziness symptoms when he is lying down ever, really no symptoms when he is sitting down, just when he stands up and really not so much after he is up, just when he first stands up. So, basically at this point he is describing some mild orthostatic symptoms, but nothing like the symptoms he had when he came in with the first couple of days. PAST MEDICAL HISTORY: Reviewed on the chart. PHYSICAL EXAMINATION: GENERAL: He is alert. He is a good historian, he has a normal voice, like to talk a lot. EYES: Sclerae and conjunctivae are normal. Extraocular movements are intact. There is no nystagmus in any field of gaze. NOSE: No massed, polyps or drainage. ORAL CAVITY AND OROPHARYNX: No trismus. Tongue protrudes midline. No lesions. NECK: No masses, no adenopathy, no thyromegaly. EARS: Unremarkable. NEUROLOGIC: His cranial nerves II through VII, XI, and XII are intact bilaterally. No asymmetry. IMPRESSION AND PLAN: Certainly, his exam is unremarkable. He has not had any dizziness before. What he describes sounds consistent with possibly a labyrinthitis that struck last week in the first couple of days, but if so he has had quite rapid recovery, usually they would be at least a little bit of nystagmus, residual or symptoms with head movements, but he is completely over CONSULT REPORT [id number] MARU MAYEN as far as what he describes, it may have some mild orthostatic symptoms now. He has no lateralizing ear symptoms. There may not be anything we can do to confirm whether he had a labyrinthitis or not. I think ruling out other issues, an MRI, etc. is fine. It really does not even need any symptomatic treatment at this point if there was a labyrinthitis, he can just slowly get back to normal activity. I would treat him with any symptomatic medications for what he describes right now as it may cause more symptoms than it helps. We can see him in the clinic and evaluate him further if needed, I will see anything else going on. TRANSINT:[id number] Voice Confirmation ID: [id number] DOCUMENT ID: [id number] MARLENE KEENE MD CC: [id number] DICTATION DATE: 02/26/20 1219 TECHNOLOGY INTEGRATION SPECIALIST: 02/26/20 1647 ADM IN [facility] [address] [place] [address]
[~2020-02-21 15:40] MED LIST changes: +COZAAR100 MG PO; +MIDODRINE HCL5 MG PO; +ROPINIROLE HCL0.5 MG PO; +SENNA LAXATIVE8.6 MG PO; +SUBOXONE 2 MG-01 TAB SL; +TOUJEO SOL300 UNIT/1 SC; +VIBRAMYCIN50 MG PO; +VOLTAREN100 GM TOPICAL
[2020-02-21 16:25] LABS: BASOPHILS 0.4 % (0-2); EOSINOPHILS 2.1 % (0-7); HEMATOCRIT 40.2 % (42.0-54.0); HEMOGLOBIN 13.1 g/dL (13.5-17.5); IMMATURE GRANULOCYTES 0.3 % (0-5); MCH 31.3 pg (26.0-34.0); MCHC 32.6 g/dL (31.0-37.0); MCV 96.2 fL (80.0-100.0); MEAN PLATELET VOLUME 10.1 fL (7.4-10.4); NEUTROPHILS 74.2 % (40-80); PLATELET COUNT 249 10x3/uL (130-400); RBC 4.18 10x6/uL (4.20-6.10); RDW 13.5 % (11.5-14.5); WBC 7.6 10x3/uL (4.8-10.8)
[2020-02-21 16:53] LABS: UDS - AMPHET NEGATIVE QUAL (NEGATIVE); UDS - BARB NEGATIVE QUAL (NEGATIVE); UDS - BENZO NEGATIVE QUAL (NEGATIVE); UDS - COCAINE NEGATIVE QUAL (NEGATIVE); UDS - OPIATE NEGATIVE QUAL (NEGATIVE); UDS - PCP NEGATIVE QUAL (NEGATIVE); UDS - THC NEGATIVE QUAL (NEGATIVE)
[2020-02-21 16:54] LABS: ANION GAP 11.3 mmol/L (8-16); CARBON DIOXIDE 27.4 mmol/L (21.0-32.0); CREATININE - SERUM 1.1 mg/dL (0.6-1.3); POTASSIUM - SERUM 3.7 mmol/L (3.5-5.1)
[2020-02-21 16:58] LABS: ALBUMIN 3.8 g/dL (3.4-5.0); BILIRUBIN - TOTAL 0.42 mg/dL (0.2-1.3); MAGNESIUM - SERUM 1.7 mg/dL (1.8-2.4); PROTEIN - SERUM 6.9 g/dL (6.4-8.2)
[2020-02-21 16:58] LABS: BILIRUBIN NEGATIVE (NEGATIVE); GLUCOSE NEGATIVE (NEGATIVE); KETONE NEGATIVE (NEGATIVE); NITRITE NEGATIVE (NEGATIVE); UROBILINOGEN NORMAL (NORMAL)
[2020-02-21 20:30] VITALS: BP 155/73
--- NOTE | 2020-02-21 20:40 | NUR ---
RECIVED PT FROM ER VIA STRETCHER. PT IS NAUSEOUS. PT STATES THAT WHEN HE MOVES HE BECOMES NAUSEOUS. NO VOMIT NOTED. PRN PEPPERFRAN OFFERED PT REFUSES. PT HEAD ELEVATED SIDERAILS x2. CALL LIGHT AND OTHER PERSONAL ITEMS WITH IN. PT STATES THAT HE HAS NO PERSONAL ITEMS BESIDES HIS PANTS AND STELLA SHIRT. WILL CONTINUE TO MONITR
[2020-02-21 22:51] VITALS: BP 158/87
[2020-02-22] VITALS: BP 159/82
[2020-02-22 04:00] VITALS: BP 162/93
--- NOTE | 2020-02-22 06:07 | NUR ---
PT IS HAVING NAUSEA. PT IS DOES NOT WANT HEAD OF BED ELEVATED. PT EDUCATED ON ASPIRATIONS PRECAUTIONS. PT REQUEST TO SEE CHARGE NURSE. ARMEN REYES IS AT BEDSIDE. HEAD OF BED ELEVATED. CALL LIGHT WITH IN REACH. WILL CONTINUE TO MONITOR
--- NOTE | 2020-02-22 06:10 | NUR ---
PATIENT ASKED TO SPEAK WITH CHARGE NURSE. PATIENT EXPLAINED THAT HE IS GETTING MOTION SICKNESS IN HIS HEAD AND HAD BEEN GAGGING. HIS PRIMARY NURSE SAT THE HEAD OF BED TO 30 DEGREES TO PREVENT ASPIRATION. PATIENT UPSET AND CUSSING AT THIS NURSE. ATTEMPTED TO EXPLAIN MULTIPLE TIMES THE PRIMARY NURSES REASONING. PATIENT DEMANDING MD BE CALLED.
[2020-02-22 06:15] LABS: BASOPHILS 0.4 % (0-2); EOSINOPHILS 0.9 % (0-7); HEMATOCRIT 38.9 % (42.0-54.0); HEMOGLOBIN 12.7 g/dL (13.5-17.5); IMMATURE GRANULOCYTES 0.2 % (0-5); LYMPHOCYTES 18.3 % (15-50); MCH 31.2 pg (26.0-34.0); MCHC 32.6 g/dL (31.0-37.0); MCV 95.6 fL (80.0-100.0); MEAN PLATELET VOLUME 10.6 fL (7.4-10.4); MONOCYTES 6.6 % (2-11); NEUTROPHILS 73.6 % (40-80); PLATELET COUNT 283 10x3/uL (130-400); RBC 4.07 10x6/uL (4.20-6.10); RDW 13.5 % (11.5-14.5); WBC 9.1 10x3/uL (4.8-10.8)
[2020-02-22 06:35] LABS: % SATURATION 33 % (15-55); IRON 97 ug/dl (35-150); TOTAL IRON BIND CAPACITY 289 ug/dl (260-445); UNSAT IRON BIND CAPACITY 192 ug/dl (150-375)
[2020-02-22 07:03] LABS: CALC OSMOLALITY 281 mosm/kg (275-300); CALCIUM 8.9 mg/dL (8.5-10.1); CHLORIDE - SERUM 106 mmol/L (98-107); CREATININE - SERUM 0.9 mg/dL (0.6-1.3); FERRITIN 65 ng/mL (3-244); GLUCOSE 129 mg/dL (74-106); MAGNESIUM - SERUM 1.8 mg/dL (1.8-2.4); PHOSPHOROUS 3.1 mg/dL (2.5-4.9); POTASSIUM - SERUM 3.9 mmol/L (3.5-5.1); SODIUM 141 mmol/L (136-145); UREA NITROGEN 11 mg/dL (7-18); eGFR NON AFRICAN AMERICAN 86 mL/min (90-120)
[2020-02-22 08:55] VITALS: BP 199/88
--- NOTE | 2020-02-22 09:00 | NUR ---
PT LYING IN BED. EYES CLOSED. CHEST RISING AND FALLING. MACHADO DRAINING BY GRAVITY. BED LOW. CL IN REACH.
--- NOTE | 2020-02-22 10:15 | NUR ---
PT REFUSED PHYSICAL THERAPY BECAUSE "NO DOCTOR HAS SEEN HIM." WENT AND SPOKE WITH PT AND HE STATES HE "CAN'T MOVE BECAUSE I HAVE MOTION SICKNESS AND IT MAKE ME NAUSEOUS LIKE I'M GOING TO THROW UP IF I MOVE AND I FEEL DIZZY. NO DOCTOR HAS CAME TO SEEN ME SINCE I'VE BEEN HERE." I EXPLAINED TO PT HE WAS SEEN IN THE ER AND BY THE SENIOR BUSINESS OBJECTS DEVELOPER LAST NIGHT BUT NO DOCTOR HAS BEEN HERE THIS MORNING TO SEE PT'S. ASKED PT IF HE WOULD LIKE ZOFRAN TO HELP WITH NAUSEA. HE STATES "I'LL TRY IT." I VERBALIZED UNDERSTANDING. ZOFRAN IV GIVEN. PT STATES HE AHS NO FURTHER NEEDS AT THIS TIME. BED LOW. CL IN REACH.
--- NOTE | 2020-02-22 10:55 | NUR ---
MD wanting orthostatic vs. Pt refused and states he "can't do it right now" because he "feels dizzy and does not feel good." Will give antivert prn med.
[2020-02-22 12:41] VITALS: BP 200/101
--- NOTE | 2020-02-22 14:26 | NUR ---
I have reviewed this patient and I concur with the Shift Assessment completed by the Licensed Practical Nurse today this shift.
--- NOTE | 2020-02-22 15:35 | NUR ---
PT HAS A DARK CALLOUS ON PLANTAR LEFT GREAT TOE. HE STATES HE'S HAD IT FOR YEARS AND WENT TO DOCTOR FOR A WHILE TO TREAT IT. IT IS NOT OPEN AND CAUSES NO PAIN. WILL CONTINUE TO MONITOR.
[2020-02-22 16:34] VITALS: BP 187/104
[2020-02-22] MEDS ORDERED: VITAMIN D1000 UNI1 PO (17:17)
[2020-02-22] MEDS ORDERED: LIPITOR80 MG PO (17:18)
[2020-02-22] MEDS ORDERED: LIPITOR40 MG PO (17:18)
[2020-02-22] MEDS ORDERED: TRICOR145 MG PO (17:19)
[2020-02-22] MEDS ORDERED: RABEPRAZOLE PO (17:22)
[2020-02-22] MEDS ORDERED: STOOL SOFTENER100 M1 PO (17:23)
[2020-02-22] MEDS ORDERED: VENTOLIN HFA [SP8 GM INH (17:25)
[2020-02-22] MEDS ORDERED: ACETAMINOPHEN500 M1 PO (17:27)
[2020-02-22] MEDS ORDERED: FLOMAX0.4 MG PO ×2 (17:28)
[2020-02-22] MEDS ORDERED: SENNA LAXATIVE8.6 MG PO (17:30)
[2020-02-22] MEDS ORDERED: ZESTRIL10 MG PO (17:36)
--- NOTE | 2020-02-22 18:11 | NUR ---
PT STATED TO ME HE DOES NOT KNOW WHAT HE TAKES AT HOME. HE STATES HE THINKS HE TAKES ABOUT 10 PILLS. CALLED PT'S HANDICAPED WHO USES A WALKER TO GET AROUND AT HOME TO GIVE ME WHAT PT TAKES. SPENT AND HOUR AND A HALF ON THE PHONE WITH HER AND SHE STATES PT TAKES LISIOPRIL BUT SHE CAN'T FIND THE BOTTLE SHE DOES NOT KNOW WHAT INSULINS AND IF PT TAKES CLONOPIN. SHE ALSO STATES THE PR SENDS THEM THEIR HOME MEDS BUT UNABLE TO NETER THAT A PHARMACY. SHE STATES SHE WANTS THE MEDS [facility] AND NOT TO HAVE TO PCIK THEM UP. I VERBALIZED UNDERSTANDING. WENT INTO PT'S ROOM AND ASKED HIM IF HE KNEW HOW MUCH LISINOPRIL HE TAKES AND ABOUT HIS INSULINS. PT PROCEEDED TO CUSS ME OUT FOR NOT GIVING HIM HIS MEDS AND HE DOESN'T KNOW AND HIS SHOULD KNOW. I EXPLAINED TO HIM HIS WENT OVER WITH ME EVERYTHING SHE COULD FIND. PAGED TERE JARRETT.
--- NOTE | 2020-02-22 18:22 | NUR ---
SPOKE WITH TERE JARRETT AND HE STATES HE WILL LOOK AT MED REC.
--- NOTE | 2020-02-22 19:17 | NUR ---
RESTING WITH EYES CLOSED RESP EVEN AND UNLABORED BED LOW AND LOCKED WITH CALL LIGHT IN REACH
[2020-02-22 20:00] VITALS: BP 183/106
--- NOTE | 2020-02-22 20:58 | NUR ---
PT STATED HE WANTED MORE MEDS BUT CAN NOT TELL ME WHAT HE TAKES STATED IF YOU DONT KNOW AND WONT GIVE ME WHAT I WANT THEN I REFUSE EVERYTHING, STATED YOU ARE NOT TREATING ME I SAID SIR YOU ARE REFUSING TREATMENT HE CALLED ME A HORSES ASS AND DEMANDED TO SPEAK TO WEB DESIGN SPECIALIST I NOTIFIED SKYLERORVISOR
--- NOTE | 2020-02-22 23:40 | NUR ---
PT IS REFUSING TREATRMENTS AND FULL EXAM
[2020-02-23] VITALS: BP 176/91
[2020-02-23 04:00] VITALS: BP 171/100
[2020-02-23 05:58] LABS: BASOPHILS 0.7 % (0-2); EOSINOPHILS 2.8 % (0-7); HEMATOCRIT 41.5 % (42.0-54.0); HEMOGLOBIN 13.5 g/dL (13.5-17.5); IMMATURE GRANULOCYTES 0.1 % (0-5); LYMPHOCYTES 28.5 % (15-50); MCHC 32.5 g/dL (31.0-37.0); MCV 95.4 fL (80.0-100.0); MEAN PLATELET VOLUME 10.5 fL (7.4-10.4); NEUTROPHILS 58.9 % (40-80); PLATELET COUNT 288 10x3/uL (130-400); RBC 4.35 10x6/uL (4.20-6.10); RDW 13.2 % (11.5-14.5); WBC 7.6 10x3/uL (4.8-10.8)
[2020-02-23 06:26] LABS: CALC OSMOLALITY 281 mosm/kg (275-300); CALCIUM 9.1 mg/dL (8.5-10.1); CARBON DIOXIDE 25.8 mmol/L (21.0-32.0); CHLORIDE - SERUM 105 mmol/L (98-107); GLUCOSE 160 mg/dL (74-106); MAGNESIUM - SERUM 1.8 mg/dL (1.8-2.4); PHOSPHOROUS 2.5 mg/dL (2.5-4.9); POTASSIUM - SERUM 4.1 mmol/L (3.5-5.1); SODIUM 139 mmol/L (136-145); eGFR NON AFRICAN AMERICAN 76 mL/min (90-120)
[2020-02-23 06:27] LABS: UREA NITROGEN 16 mg/dL (7-18)
[2020-02-23 08:24] VITALS: BP 146/77
[2020-02-23 12:19] VITALS: Ht 180.3 cm; Wt 107.5 kg
[2020-02-23 12:34] VITALS: BP 175/100
--- NOTE | 2020-02-23 13:34 | MORECARE ---
CASE MANAGEMENT DISCHARGE SUMMARY PATIENT: MARU MAYEN UNIT: [id number] ADM DATE: 02/22/20 AGE: 79 : 40 SEX: M ROOM/BED: D.2105 AUTHOR: WERNER THOMPSON PHYSICIAN: REFERRING PHYSICIAN: ANNY HYLTON DO DATE OF SERVICE: 02/23/20 Discharge Plan Patient Name: MARU MAYEN Facility: [facility]:[place] : 1940 Planned Disposition: [place] facility Anticipated Discharge Date: Discharge Date: Expected LOS: Initial Reviewer: [email or web address] Initial Review Date: 02/23/2020 Generated: 02/23/20 2:34 pm Comments DCP- Discharge Planning Updated by [email or web address]: Falguni Arredondo on 02/23/20 12:[address] Patient Name: MARU MAYEN Admission Status: ER Accout number: [id number] Admission Date: 02-22-2020 : 1940 Admission Diagnosis: Attending: ANNY HYLTON Current LOS: 1 Anticipated DC Date: Planned Disposition: [place] facility Primary Insurance: MEDICARE A & B Discharge Planning Comments: CM met with patient to discuss discharge planning/needs, he is alone in the room. He states he lives independently with his . States he does not have any DME. States [facility] States he has good neighbors that will pick him up when ready for discharge. I called the VA bag worker and spoke with Stephie and informed her that patient requests transfer. I informed Faiza Saavedra that patient requests transfer and has many questions including having his home medications restarted. CM will continue to follow and assist with discharge planning/needs. Laboratory Monitor: Falguni Arredondo DCPIA - Discharge Planning Initial Assessment Updated by [email or web address]: Falguni Arredondo on 02/23/20 1:29 pm * Is the patient Alert and Oriented? Yes * PCP [facility] physician * Pharmacy [place] * Preadmission Environment Home with Family * ADLs Independent * Equipment None * List name and contact numbers for known caregivers / representatives who currently or will assist patient after discharge: Sara Mayen - [facility] - [phone] * Verbal permission to speak to the caregivers and representatives has been obtained from the patient. Yes * Community resources currently utilized [facility] Services * Additional services required to return to the preadmission environment? No * Can the patient safely return to the preadmission environment? Yes * Has this patient been hospitalized within the prior 30 days at any hospital? No Patient Name: MARU MAYEN Page 92767 at 1334 All edits/amendments must be made on the electronic document DICTATION DATE: 02/23/201333 OFFICE MACHINE SERVICE SUPERVISOR: JESSICA 02/23/204 RPT#: [id number] DC DATE: STATUS: ADM IN [facility] [address] [place] [address] END OF REPORT
[2020-02-23 16:22] VITALS: BP 191/110
--- NOTE | 2020-02-23 17:11 | NUR ---
PT WITH TWO EPISODE OF BRADYCARDIA THAT REBOUNDS BACK TO NORMAL RATE. BUSINESS SUPPORT TECH STATES LOOKS LIKE CONDUCTION CHANGES.
[2020-02-23 20:30] VITALS: BP 188/85
[2020-02-24 00:30] VITALS: BP 187/98
[2020-02-24 04:30] VITALS: BP 184/86
[2020-02-24 04:50] LABS: BASOPHILS 0.7 % (0-2); HEMATOCRIT 41.2 % (42.0-54.0); HEMOGLOBIN 13.9 g/dL (13.5-17.5); IMMATURE GRANULOCYTES 0.1 % (0-5); LYMPHOCYTES 32.7 % (15-50); MCH 31.7 pg (26.0-34.0); MCHC 33.7 g/dL (31.0-37.0); MCV 94.1 fL (80.0-100.0); MEAN PLATELET VOLUME 10.5 fL (7.4-10.4); MONOCYTES 10.8 % (2-11); NEUTROPHILS 51.7 % (40-80); RBC 4.38 10x6/uL (4.20-6.10); RDW 12.9 % (11.5-14.5); WBC 6.7 10x3/uL (4.8-10.8)
[2020-02-24 04:52] LABS: PLATELET COUNT 154 10x3/uL (130-400)
[2020-02-24 05:36] LABS: CALC OSMOLALITY 284 mosm/kg (275-300); CALCIUM 9.2 mg/dL (8.5-10.1); CARBON DIOXIDE 25.4 mmol/L (21.0-32.0); CHLORIDE - SERUM 107 mmol/L (98-107); GLUCOSE 173 mg/dL (74-106); PHOSPHOROUS 2.7 mg/dL (2.5-4.9); POTASSIUM - SERUM 3.7 mmol/L (3.5-5.1); SODIUM 140 mmol/L (136-145); UREA NITROGEN 19 mg/dL (7-18); eGFR NON AFRICAN AMERICAN 76 mL/min (90-120)
--- NOTE | 2020-02-24 07:30 | NUR ---
UPON ANSWERING CALL LIGHT, PT DEMANDS TO KNOW WHERE HIS MEDICATION IS. EXPLAINED TO HIM THAT HE WAS THE FIRST PERSON I WAS BRINGING MEDICATION TO AND I WAS IN THE MIDDLE OF GATHERING THEM. HE ALSO STATED THAT HE DID NOT RECIEVE HIS INSULIN THIS MORNING AND THAT HIS BLOOD SUGAR WAS REALLY HIGH. LABS REVIEWED, BLOOD GLUCOSE WAS 176. IN DEC INSULIN WAS NOT RECIEVED. MANAGER MANUFACTURING NURSE TOLD ME IN REPORT THAT PT STATED HE WAS DIZZY AND WAS PROBABLY NOT GOING TO EAT. EDUCATED PT THAT IF HE DID NOT EAT AFTER TAKING INSULIN, HE COULD BECOME HYPOGLYCEMIC. BLOOD GLUCOSE RECHECKED, 147. DOES NOT QUALIFY FOR SLIDING SCALE. PT ASKED TO SPEAK TO HONING MACHINE TRY OUT SETTER. RECIEVED HONING MACHINE TRY OUT SETTER PHONE NUMBER. RR EVEN AND UNLABORED. DENIES NEEDS OR PAIN AT THIS TIME. CALL LIGHT WITHIN REACH. BED IN LOWEST POSITION. WILL CONTINUE TO MONITOR.
[2020-02-24 09:47] VITALS: BP 191/111
--- NOTE | 2020-02-24 11:08 | MORECARE ---
CASE MANAGEMENT DISCHARGE SUMMARY PATIENT: MARU MAYEN UNIT: [id number] ADM DATE: 02/22/20 AGE: 79 : 40 SEX: M ROOM/BED: D.2107 AUTHOR: DONNADOC PHYSICIAN: REFERRING PHYSICIAN: ANNY HYLTON DO DATE OF SERVICE: 02/24/20 Discharge Plan Patient Name: MARU MAYEN Facility: [facility]:[place] : 1940 Planned Disposition: [place] facility Anticipated Discharge Date: Discharge Date: Expected LOS: Initial Reviewer: [email or web address] Initial Review Date: 02/23/2020 Generated: 02/24/20 12:08 pm Comments DCP- Discharge Planning Updated by [email or web address]: Falguni Arredondo on 02/24/20 10:[address] CM spoke with Stephie [place] manager reading, about transfer. She states that he is on the list and to check back with Carlie Shetty on Wednesday. Carlie Shetty's phone number is [phone]. I spoke with the patient and informed him of this. Patient is requesting to see a neuro surgeon. I spoke with Dr. Hylton and informed him of request. CM will continue to follow and assist with discharge planning/needs. DCP- Discharge Planning Updated by [email or web address]: Falguni Arredondo on 02/23/20 12:[address] Patient Name: MARU MAYEN Admission Status: ER Accout number: [id number] Admission Date: 02-22-2020 : 1940 Admission Diagnosis: Attending: ANNY HYLTON Current LOS: 1 Anticipated DC Date: Planned Disposition: [place] facility Primary Insurance: MEDICARE A & B Discharge Planning Comments: CM met with patient to discuss discharge planning/needs, he is alone in the room. He states he lives independently with his . States he does not have any DME. States [facility]. States he has good neighbors that will pick him up when ready for discharge. I called the VA manager reading and spoke with Stephie and informed her that patient requests transfer. I informed Faiza Saavedra that patient requests transfer and has many questions including having his home medications restarted. CM will continue to follow and assist with discharge planning/needs. Alarm Field Technician: Falguni Arredondo DCPIA - Discharge Planning Initial Assessment Updated by [email or web address]: Falguni Arredondo on 02/23/20 1:29 pm * Is the patient Alert and Oriented? Yes * PCP [facility] physician * [facility]acy [facility] * Preadmission Environment Home with Family * ADLs Independent * Equipment None * List name and contact numbers for known caregivers / representatives who currently or will assist patient after discharge: Sara Mayen [facility] - [phone] * Verbal permission to speak to the caregivers and representatives has been obtained from the patient. Yes * Community resources currently utilized [place] Services * Additional services required to return to the preadmission environment? No * Can the patient safely return to the preadmission environment? Yes * Has this patient been hospitalized within the prior 30 days at any hospital? No Last DP export: 02/23/20 12:34 p Patient Name: MARU MAYEN Page [phone] at 1108 All edits/amendments must be made on the electronic document DICTATION DATE: 02/24/201107 PEDICAB DRIVER: JESSICA 02/24/20 110 RPT#: [id number] DC DATE: STATUS: ADM IN [facility] [address] [place] [address] END OF REPORT
[2020-02-24 13:10] VITALS: BP 178/94
[2020-02-24 17:59] VITALS: BP 143/73
--- NOTE | 2020-02-24 19:15 | NUR ---
REPORT RECEIVED. BEDSIDE SHIFT REPORT COMPLETE. RR EVEN AND UNLABORED. NO S/SX OF DISTRESS OBSERVED AT THIS TIME. PT DENIES NEEDS AT THIS TIME. CALL LIGHT IN REACH. WILL CPOC.
[2020-02-24 20:30] VITALS: BP 184/103
[2020-02-25 00:30] VITALS: BP 182/91
--- NOTE | 2020-02-25 01:58 | NUR ---
PT CHRISTIANE RESTING IN BED WITH EYES CLOSED. NO DISTRESS OBSERVED. CALL LIGHT IN REACH. WILL CTM.
--- NOTE | 2020-02-25 04:02 | NUR ---
PT CALLED FOR ASSISTANCE AND C/O OF HIS NEIGHBOR BEING TOO LOUD. HE REQUESTED THE VOLTAREN GEL THAT HE HAD REFUSED PRIOR DURING THE SHIFT. HE IS FORGETFUL STATING HE WANTED SOME ANTIVERT BUT DOES NOT REMEMBER BEING OFFERED IT EARLIER. PROVIDED MEDICATION PER REQUEST. DENIES ANY ADDITIONAL NEEDS AT THIS TIME BUT BECAME VERY ANXIOUS WHEN A SMALL DROP OF WATER LANDED ON HIS SHEETS. CALL LIGHT IN REACH. WILL CTM.
[2020-02-25 04:25] VITALS: BP 153/82
[2020-02-25 04:58] LABS: BASOPHILS 0.9 % (0-2); EOSINOPHILS 6.3 % (0-7); HEMATOCRIT 40.6 % (42.0-54.0); HEMOGLOBIN 13.5 g/dL (13.5-17.5); IMMATURE GRANULOCYTES 0.1 % (0-5); LYMPHOCYTES 29.1 % (15-50); MCH 31.4 pg (26.0-34.0); MCHC 33.3 g/dL (31.0-37.0); MCV 94.4 fL (80.0-100.0); MEAN PLATELET VOLUME 10.5 fL (7.4-10.4); MONOCYTES 9.9 % (2-11); NEUTROPHILS 53.7 % (40-80); RDW 13.1 % (11.5-14.5); WBC 7.6 10x3/uL (4.8-10.8)
[2020-02-25 05:06] LABS: PLATELET COUNT 250 10x3/uL (130-400)
[2020-02-25 05:21] LABS: CALC OSMOLALITY 284 mosm/kg (275-300); CALCIUM 9.3 mg/dL (8.5-10.1); CARBON DIOXIDE 24.1 mmol/L (21.0-32.0); CHLORIDE - SERUM 106 mmol/L (98-107); GLUCOSE 176 mg/dL (74-106); MAGNESIUM - SERUM 1.9 mg/dL (1.8-2.4); PHOSPHOROUS 2.8 mg/dL (2.5-4.9); POTASSIUM - SERUM 3.7 mmol/L (3.5-5.1); SODIUM 139 mmol/L (136-145); UREA NITROGEN 21 mg/dL (7-18); eGFR NON AFRICAN AMERICAN 76 mL/min (90-120)
--- NOTE | 2020-02-25 08:56 | CN ---
PATIENT NAME:MARU CARUSO MEDICAL RECORD: [id number] : [birth year] LOCATION:D. D.2105 ADMIT DATE: 02/22/20 ACCOUNT: [id number] CONSULTING PHYSICIAN: LAZ SAVAGE MD REFERRING PHYSICIAN: ANNY HYLTON DO DATE OF CONSULTATION: 02/24/2020 HISTORY OF PRESENT ILLNESS: A 79-year-old gentleman with known history of coronary artery disease, status post intervention, most recent angiography showed patent stent, normal LV function, has a history of hypertension and diabetes, admitted with dizziness, vertigo type symptomatology. Initially was accompanied by marked nausea. At this point in time he has marked symptomology upon arising to sitting or sitting to standing, does have cardiac arrhythmias with AIVR on telemetry strip with a rate of about 50. We are asked to see him currently concerning his cardiovascular status. PAST MEDICAL HISTORY: Includes; 1. History of hypertension. 2. Coronary artery disease as described above. 3. Diabetes mellitus. ALLERGIES: None known. MEDICATIONS: Include insulin per scale, Symbicort two puffs b.i.d., Klonopin 0.5 p.o. every day, Suboxone 1 tablet t.i.d., Voltaren topical 2 grams q.i.d., aspirin 325 every day, lisinopril 2.5 every day, fenofibrate 145 every day, atorvastatin 40 every day, albuterol 1 puff every 4 hours. SOCIAL HISTORY: , lives in [place]. Nonsmoker, nondrinker. Easily takes care of all his ADLs. REVIEW OF SYSTEMS: The patient reports easy bruising but reports no swollen glands. The patient reports no fever, no night sweats, no significant weight gain, no significant weight loss. No significant exercise tolerance. The patient reports no dry eyes, no irritation, no vision change. Patient reports no difficulty hearing and no ear pain. Patient reports no frequent nose bleeds or nose and sinus problems. Patient reports on arm pain on exertion. No shortness of breath while lying down. No history of heart murmur. Patient reports no cough, no wheezing or coughing up blood. Patient reports no abdominal pain, no vomiting. Normal appetite. No diarrhea and not vomiting blood. No nausea and no constipation. Patient reports no incontinence. No difficulty urinating. No hematuria. No increased frequency. Patient reports no muscle aches. No weakness, no arthralgias, no back pain. No swelling of the extremities. Patient reports no abnormal mole, no jaundice, no rashes. Reports no loss of consciousness. No weakness and no numbness. No seizures, dizziness, or headaches. The patient reports no depression, no sleep disturbance, feeling safe in a relationship and no alcohol abuse. Patient reports on fatigue. Reports no runny nose or sinus pressure. No itching, no hives, and no frequent sneezing. PHYSICAL EXAMINATION: GENERAL: Pleasant, no acute distress, appears stated age. VITAL SIGNS: Blood pressure 119/111, pulse 92 and regular. HEENT: Normocephalic, atraumatic. NECK: No JVD or bruit. CONSULT REPORT [id number] MARU CARUSO HEART: Regular, II/ systolic ejection murmur. LUNGS: Good air excursion. ABDOMEN: Soft, nontender. EXTREMITIES: Pulses 2+. There is no edema. 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 Given recent angiography, no further workup from a cardiovascular standpoint. Continue medical management as you are doing. TRANSINT:[id number] Voice Confirmation ID: [id number] DOCUMENT ID: [id number] LAZ SAVAGE MD at 0856 CC: [id number] DICTATION DATE: 02/24/20 1214 ROADSIDE MECHANIC: 02/24/20 1712 ADM IN [facility] [address] [place] [id number]
[2020-02-25 09:24] VITALS: BP 155/102
[2020-02-25 12:10] VITALS: BP 105/57; BP 159/102
--- NOTE | 2020-02-25 12:48 | NUR ---
MRI C SPINE CAN BE DONE ON WEDNESDAY PER DR SHAFFER 02/25/20 AT 1245. JOSE INFORMED OF THIS.
--- NOTE | 2020-02-25 13:33 | NUR ---
PHYSICAL THERAPY AT BEDSIDE. ASSISTED PT TO SHOWER WITH WALKER. SHOWER RECIEVED. LINENS AND GOWN CHANGED. ROOM SITUATED TO PT'S LIKING. BACK TO BED WITH PHYSICAL THERAPY. REPOSITIONED TO COMFORT. BED IN LOWEST POSITION. CALL LIGHT WITHIN REACH. WILL CONTINUE TO MONITOR.
--- NOTE | 2020-02-25 17:29 | NUR ---
I have reviewed this patient and I concur with the Shift Assessment completed by the Licensed Practical Nurse today this shift.
[2020-02-25 18:11] VITALS: BP 158/97
[2020-02-25 20:00] VITALS: BP 178/90
--- NOTE | 2020-02-26 02:30 | NUR ---
PT CALLED FOR ASSISTANCE WITH SEVERE ANXIETY ABOUT HIS RESTLESS LEGS. PROVIDED KLONOPIN PER PRN ORDER. PT THREATENED THAT HE "WILL GET VIOLENT X2" UNLESS HE IS PROVIDED WITH PROPER CARE. ATTEMPTED TO CALM PT DOWN. DENIES FURTHER NEEDS. CALL LIGHT IN REACH. WILL CTM.
[2020-02-26 07:59] LABS: BASOPHILS 0.8 % (0-2); EOSINOPHILS 6.9 % (0-7); HEMATOCRIT 42.6 % (42.0-54.0); HEMOGLOBIN 14.1 g/dL (13.5-17.5); IMMATURE GRANULOCYTES 0.3 % (0-5); LYMPHOCYTES 31.3 % (15-50); MCH 31.5 pg (26.0-34.0); MCHC 33.1 g/dL (31.0-37.0); MCV 95.3 fL (80.0-100.0); MEAN PLATELET VOLUME 10.5 fL (7.4-10.4); MONOCYTES 10.2 % (2-11); NEUTROPHILS 50.5 % (40-80); PLATELET COUNT 270 10x3/uL (130-400); RBC 4.47 10x6/uL (4.20-6.10); RDW 12.9 % (11.5-14.5); WBC 7.8 10x3/uL (4.8-10.8)
[2020-02-26 08:14] LABS: CALC OSMOLALITY 287 mosm/kg (275-300); CALCIUM 9.6 mg/dL (8.5-10.1); CARBON DIOXIDE 24.5 mmol/L (21.0-32.0); CHLORIDE - SERUM 107 mmol/L (98-107); GLUCOSE 166 mg/dL (74-106); MAGNESIUM - SERUM 1.9 mg/dL (1.8-2.4); PHOSPHOROUS 2.7 mg/dL (2.5-4.9); POTASSIUM - SERUM 3.8 mmol/L (3.5-5.1); SODIUM 141 mmol/L (136-145); UREA NITROGEN 22 mg/dL (7-18); eGFR NON AFRICAN AMERICAN 76 mL/min (90-120)
[2020-02-26 09:46] VITALS: BP 175/102
--- NOTE | 2020-02-26 09:57 | NUR ---
WENT TO GET PATIENT FOR HIS MRI C SPINE. AFTER SCREENING HIM HE ASKED FOR MEDS BECAUSE HE IS CLAUSTROPHOBIC. I TOLD HIM I WOULD GET WITH HIS NURSE AND SHE MIGHT NEED TO CALL THE DOCTOR TO GET SOMETHING ORDERED. I ALSO EXPLAINED TO HIM THAT I WILL COME BACK ONCE I HAVE ANOTHER OPENING BETWEEN OUTPATIENTS AND THAT I DIDN'T KNOW WHEN THAT WOULD BE. SPOKE WITH KRISTINA HIS NURSE AND SHE IS GOING TO CALL ME ONCE SHE HAS AN ORDER TO GIVE HIM SOME MEDS. I WILL THEN CALL HER WHEN I AM READY FOR HER TO GIVE THEM TO HIM FOR HIS TEST.
--- NOTE | 2020-02-26 11:50 | NUR ---
CALLED DOCTOR TO ORDER ANTIANXIETY PREMEDS FOR PTS MRI. EDUCATED PT ON THIS. VERBALIZES RELIEF. WILL INFORM PT WHEN IT IS TIME
[2020-02-26 11:51] VITALS: BP 185/114
--- NOTE | 2020-02-26 12:21 | NUR ---
Nutrition Follow-up: PO intake fluctuates (0-100%). Noted plans for MRI of spine today. Diet: Cardiac Carb Consistent No new wt; last wt: 237# (02/22) No BMs recorded Labs noted: Glu 166 Meds noted: electrolyte protocol, Colace, Protonix, Humalog -Encourage PO intake and honor food preferences within diet restrictions. -Monitor wt; noted daily wts ordered. -RD following.
[2020-02-26 17:02] VITALS: BP 150/78
--- NOTE | 2020-02-26 19:23 | NUR ---
PT IS POLITE AT THUIS TIME DENIES NEEDS BED LOW AND LOCKED CALL LIGHT IS IN REACH
[2020-02-26 20:00] VITALS: BP 159/86
[2020-02-27] VITALS: BP 147/77
--- NOTE | 2020-02-27 02:36 | NUR ---
I have reviewed this patient and I concur with the Shift Assessment completed by the Licensed Practical Nurse today this shift.
[2020-02-27 04:00] VITALS: BP 135/86
[2020-02-27 05:43] LABS: BASOPHILS 0.7 % (0-2); EOSINOPHILS 8.2 % (0-7); HEMATOCRIT 42.1 % (42.0-54.0); HEMOGLOBIN 13.9 g/dL (13.5-17.5); IMMATURE GRANULOCYTES 0.3 % (0-5); LYMPHOCYTES 34.6 % (15-50); MCH 31.2 pg (26.0-34.0); MCV 94.4 fL (80.0-100.0); MEAN PLATELET VOLUME 10.5 fL (7.4-10.4); MONOCYTES 9.8 % (2-11); NEUTROPHILS 46.4 % (40-80); PLATELET COUNT 299 10x3/uL (130-400); RBC 4.46 10x6/uL (4.20-6.10); RDW 12.9 % (11.5-14.5); WBC 7.3 10x3/uL (4.8-10.8)
[2020-02-27 06:16] LABS: CALC OSMOLALITY 285 mosm/kg (275-300); CALCIUM 9.6 mg/dL (8.5-10.1); CHLORIDE - SERUM 106 mmol/L (98-107); GLUCOSE 158 mg/dL (74-106); SODIUM 140 mmol/L (136-145); UREA NITROGEN 24 mg/dL (7-18); eGFR NON AFRICAN AMERICAN 76 mL/min (90-120)
[2020-02-27 07:52] VITALS: BP 137/60
[2020-02-27 11:36] VITALS: BP 153/84
--- NOTE | 2020-02-27 15:00 | MORECARE ---
CASE MANAGEMENT DISCHARGE SUMMARY PATIENT: MARU MAYEN UNIT: [id number] ADM DATE: 02/22/20 AGE: 79 : 40 SEX: M ROOM/BED: D.2109 AUTHOR: DONNA,DOC PHYSICIAN: REFERRING PHYSICIAN: ANNY HYLTON DO DATE OF SERVICE: 02/27/20 Discharge Plan Patient Name: MARU MAYEN Facility: [facility]:[place] : 1940 Planned Disposition: [place] facility Anticipated Discharge Date: Discharge Date: Expected LOS: Initial Reviewer: [email or web address] Initial Review Date: 02/23/2020 Generated: 02/27/20 3:59 pm DCP- Discharge Planning Updated by [email or web address]: Falguni Arredondo on 02/24/20 10:[address] CM spoke with [facility] dean, about transfer. She states that he is on the list and to check back with Carlie Shetty on Wednesday. Carlie Shetty's phone number is [phone]. I spoke with the patient and informed him of this. Patient is requesting to see a neuro surgeon. I spoke with Dr. Hylton and informed him of request. CM will continue to follow and assist with discharge planning/needs. DCP- Discharge Planning Updated by [email or web address]: Falguni Arredondo on 02/23/20 12:[address] Patient Name: MARU MAYEN Admission Status: ER Accout number: [id number] Admission Date: 02-22-2020 : 1940 Admission Diagnosis: Attending: ANNY HYLTON Current LOS: 1 Anticipated DC Date: Planned Disposition: [place] facility Primary Insurance: MEDICARE A & B Discharge Planning Comments: CM met with patient to discuss discharge planning/needs, he is alone in the room. He states he lives independently with his . States he does not have any DME. States [facility]. States he has good neighbors that will pick him up when ready for discharge. I called the [facility] dean and spoke with Stephie and informed her that patient requests transfer. I informed Faiza Saavedra that patient requests transfer and has many questions including having his home medications restarted. CM will continue to follow and assist with discharge planning/needs. Grinder Set Up Operator Thread Tool: Falguni Arredondo DCPIA - Discharge Planning Initial Assessment Updated by [email or web address]: Falguni Bonillafran on 02/23/20 1:29 pm * Is the patient Alert and Oriented? Yes * PCP [place] * [place] * Preadmission Environment Home with Family * ADLs Independent * Equipment None * List name and contact numbers for known caregivers / representatives who currently or will assist patient after discharge: Sara Mayen [facility] - [phone] * Verbal permission to speak to the caregivers and representatives has been obtained from the patient. Yes * Community resources currently utilized [place] Services * Additional services required to return to the preadmission environment? No * Can the patient safely return to the preadmission environment? Yes * Has this patient been hospitalized within the prior 30 days at any hospital? No External Providers [facility] Next Contact Date: Service Request Date: Service Type: Resolution: Reviewer: Comments: External Provider: [facility] Next Contact Date: Service Request Date: Service Type: Resolution: Reviewer: Comments: Last DP export: 02/24/20 10:08 a Patient Name: MARU MAYEN Page [phone] at 1500 All edits/amendments must be made on the electronic document DICTATION DATE: 02/27/201458 POND WORKER: JESSICA 02/27/201458 RPT#: [id number] DC DATE: STATUS: ADM IN [facility] [address] [place] [address] END OF REPORT
[2020-02-27] MEDS ORDERED: MECLIZINE HCL25 MG PO (15:44)
--- NOTE | 2020-02-27 15:44 | NUR ---
SPOKE WITH LUIZA GARCIA. SHE IS SENDING PT VERTIGO TO PHARMACY TO GET PT THROUGH UNTIL F/U IN WEEK. IV DC'D PT INSTRUCTIONS GIVEN.
--- NOTE | 2020-02-28 10:31 | NUR ---
1029- TO CALL AND STATE THAT "THE MEDICATION DID NOT GET CALLED IN LIKE IT WAS SUPPOSE TO". I LOOKED IN HIS DISCHARGE CHART AND THE MEDICATION WAS SENT TO [facility] PER HIS MEDICATIONS PROFILE. SHE IS VERY UPSET WITH THIS. I ASKED HER WHAT PHARMACY IT WAS SUPPOSE TO BE AND SHE STATES, "[facility]". I CALLED NANDO HENDRICKS - PHARMACIST AND GAVE THE PERSCRIPTION TO HER FOR 2 WEEKS WITH NO REILLS. I THEN CALLED MRS CARUSO AND TOLD HER THAT I CALLED THE MEDICATION IN.
== END 2020-02-27 18:07 | disposition home or self-care (01) | DRG 917 ==
LOC: D.ER 15:40 → D.ICU 17:38 → D.M2 18:28 → OBSVTIME 02-22 15:00 → D.M2 02-22 18:07
PROVIDERS: Family Medicine; Internal Medicine Nephrology; ADMIT Family Medicine; ATTEND Family Medicine
DX: T50.901A Poisoning by unspecified drugs, medicaments and biological substances, accidental (unintentional), initial encounter (principal); J18.9 Pneumonia, unspecified organism; N17.9 Acute kidney failure, unspecified; I10 Essential (primary) hypertension; I25.10 Atherosclerotic heart disease of native coronary artery without angina pectoris; K21.9 Gastro-esophageal reflux disease without esophagitis; E11.65 Type 2 diabetes mellitus with hyperglycemia; D64.9 Anemia, unspecified; F41.8 Other specified anxiety disorders; F31.9 Bipolar disorder, unspecified; H83.09 Labyrinthitis, unspecified ear; R51 Headache

== ENCOUNTER → 2020-03-22 20:01 | Outpatient (CLI) | payer MEDICARE ==
[2020-02-23 12:19] VITALS: BMI 33.0
[~2020-03-22 20:01] MED LIST changes: +ACETAMINOPHEN500 M1 PO; +FLOMAX0.4 MG PO; +LIPITOR80 MG PO; +MECLIZINE HCL25 MG PO; +RABEPRAZOLE PO; +STOOL SOFTENER100 M1 PO; +VENTOLIN HFA [SP8 GM INH; +VITAMIN D1000 UNI1 PO
[2020-03-22 20:23] LABS: MCH 28.6 pg (26.0-34.0); MCHC 29.6 g/dL (31.0-37.0); MCV 96.4 fL (80.0-100.0); MEAN PLATELET VOLUME 11.6 fL (7.4-10.4); RDW 13.4 % (11.5-14.5); WBC 6.1 10x3/uL (4.8-10.8)
[2020-03-22 20:24] LABS: PLATELET COUNT 50 10x3/uL (130-400)
[2020-03-22 20:39] LABS: ANION GAP 12.5 mmol/L (8-16); BILIRUBIN - TOTAL 0.39 mg/dL (0.2-1.3); CALCIUM 8.5 mg/dL (8.5-10.1); CARBON DIOXIDE 27.6 mmol/L (21.0-32.0); CREATININE - SERUM 1.2 mg/dL (0.6-1.3); PROTEIN - SERUM 5.3 g/dL (6.4-8.2)
[2020-03-22 20:40] LABS: POTASSIUM - SERUM 6.1 mmol/L (3.5-5.1)
[2020-03-22 20:43] LABS: ANISOCYTOSIS 1+; EOSINOPHILS 9 % (0-7); LYMPHOCYTES 42 % (15-50); MONOCYTES 3 % (2-11); NEUTROPHILS 46 % (40-80); PLATELET ESTIMATE DECREASED; POIKILOCYTOSIS 1+
[2020-03-22 21:30] LABS: ERYTHROCYTE SEDIMENTATION RATE 0 mm/hr (0-20)
== END | disposition home or self-care (01) ==
LOC: D.LABREF 20:01
PROVIDERS: ATTEND Family Medicine
DX: T84.59XA Infection and inflammatory reaction due to other internal joint prosthesis, initial encounter (principal); E11.9 Type 2 diabetes mellitus without complications

== ENCOUNTER → 2020-03-23 14:23 | Outpatient (CLI) | payer MEDICARE ==
[2020-02-23 12:19] VITALS: BMI 33.0
[2020-03-23 14:43] LABS: ANION GAP 10.1 mmol/L (8-16); BILIRUBIN - TOTAL 0.23 mg/dL (0.2-1.3); CALCIUM 8.6 mg/dL (8.5-10.1); CARBON DIOXIDE 26.9 mmol/L (21.0-32.0); CREATININE - SERUM 1.1 mg/dL (0.6-1.3); PROTEIN - SERUM 5.4 g/dL (6.4-8.2)
== END | disposition home or self-care (01) ==
LOC: D.LABREF 14:23
PROVIDERS: ATTEND Family Medicine
DX: T84.59XA Infection and inflammatory reaction due to other internal joint prosthesis, initial encounter (principal)

== ENCOUNTER → 2020-03-25 19:37 | Outpatient (CLI) | payer MEDICARE ==
[2020-02-23 12:19] VITALS: BMI 33.0
[2020-03-25 20:04] LABS: BASOPHILS 1.8 % (0-2); EOSINOPHILS 10.8 % (0-7); HEMOGLOBIN 8.7 g/dL (13.5-17.5); IMMATURE GRANULOCYTES 0.4 % (0-5); LYMPHOCYTES 40.7 % (15-50); MCH 30.9 pg (26.0-34.0); MCHC 31.1 g/dL (31.0-37.0); MCV 99.3 fL (80.0-100.0); MEAN PLATELET VOLUME 9.3 fL (7.4-10.4); NEUTROPHILS 36.3 % (40-80); RBC 2.82 10x6/uL (4.20-6.10); RDW 14.4 % (11.5-14.5); WBC 4.9 10x3/uL (4.8-10.8)
[2020-03-25 20:08] LABS: PLATELET COUNT 380 10x3/uL (130-400)
[2020-03-25 20:11] LABS: CREATININE - SERUM 1.1 mg/dL (0.6-1.3)
[2020-03-26 16:53] LABS: VANCOMYCIN - TROUGH 9.8 ug/mL (10.0-20.0)
== END | disposition home or self-care (01) ==
LOC: D.LABREF 19:37
DX: T84.59XA Infection and inflammatory reaction due to other internal joint prosthesis, initial encounter (principal); E11.9 Type 2 diabetes mellitus without complications

== ENCOUNTER → 2020-04-01 15:47 | Outpatient (CLI) | payer MEDICARE ==
[2020-02-23 12:19] VITALS: BMI 33.0
[2020-04-01 17:45] LABS: EOSINOPHILS 7.8 % (0-7); HEMATOCRIT 27.3 % (42.0-54.0); HEMOGLOBIN 8.7 g/dL (13.5-17.5); IMMATURE GRANULOCYTES 0.2 % (0-5); LYMPHOCYTES 28.4 % (15-50); MCH 31.1 pg (26.0-34.0); MCHC 31.9 g/dL (31.0-37.0); MCV 97.5 fL (80.0-100.0); MEAN PLATELET VOLUME 9.4 fL (7.4-10.4); MONOCYTES 9.9 % (2-11); NEUTROPHILS 52.7 % (40-80); PLATELET COUNT 306 10x3/uL (130-400); RDW 14.7 % (11.5-14.5); WBC 6.2 10x3/uL (4.8-10.8)
[2020-04-01 19:11] LABS: ALBUMIN 2.9 g/dL (3.4-5.0); ALKALINE PHOSPHATASE 85 U/L (30-120); ALT (SGPT) 21 U/L (10-68); BILIRUBIN - TOTAL 0.28 mg/dL (0.2-1.3); CALC OSMOLALITY 286 mosm/kg (275-300); CALCIUM 9.1 mg/dL (8.5-10.1); CARBON DIOXIDE 26.5 mmol/L (21.0-32.0); CHLORIDE - SERUM 107 mmol/L (98-107); GLUCOSE 106 mg/dL (74-106); POTASSIUM - SERUM 3.8 mmol/L (3.5-5.1); PROTEIN - SERUM 5.9 g/dL (6.4-8.2); SODIUM 143 mmol/L (136-145); UREA NITROGEN 18 mg/dL (7-18); VANCOMYCIN - TROUGH 15.8 ug/mL (10.0-20.0); eGFR NON AFRICAN AMERICAN 76 mL/min (90-120)
== END | disposition home or self-care (01) ==
LOC: D.LABREF 15:47
PROVIDERS: ATTEND Physical Medicine & Rehabilitation
DX: T84.59XA Infection and inflammatory reaction due to other internal joint prosthesis, initial encounter (principal); M86.9 Osteomyelitis, unspecified; B95.7 Other staphylococcus as the cause of diseases classified elsewhere; E11.69 Type 2 diabetes mellitus with other specified complication

== ENCOUNTER → 2020-04-08 15:15 | Outpatient (CLI) | payer MEDICARE ==
[2020-02-23 12:19] VITALS: BMI 33.0
[2020-04-08 15:30] LABS: BASOPHILS 1.8 % (0-2); EOSINOPHILS 6.1 % (0-7); HEMATOCRIT 31.1 % (42.0-54.0); HEMOGLOBIN 9.6 g/dL (13.5-17.5); IMMATURE GRANULOCYTES 0.2 % (0-5); LYMPHOCYTES 29.3 % (15-50); MCH 30.4 pg (26.0-34.0); MCHC 30.9 g/dL (31.0-37.0); MCV 98.4 fL (80.0-100.0); MEAN PLATELET VOLUME 11.3 fL (7.4-10.4); NEUTROPHILS 53.6 % (40-80); PLATELET COUNT 248 10x3/uL (130-400); RBC 3.16 10x6/uL (4.20-6.10); RDW 14.4 % (11.5-14.5); WBC 4.4 10x3/uL (4.8-10.8)
[2020-04-08 15:47] LABS: ALBUMIN 3.1 g/dL (3.4-5.0); BILIRUBIN - TOTAL 0.44 mg/dL (0.2-1.3); CARBON DIOXIDE 29.4 mmol/L (21.0-32.0); CREATININE - SERUM 1.2 mg/dL (0.6-1.3); POTASSIUM - SERUM 3.4 mmol/L (3.5-5.1); VANCOMYCIN - TROUGH 16.5 ug/mL (10.0-20.0)
== END | disposition home or self-care (01) ==
LOC: D.LABREF 15:15
PROVIDERS: ATTEND Family Medicine
DX: M00.9 Pyogenic arthritis, unspecified (principal)

== ENCOUNTER → 2020-04-15 13:08 | Outpatient (CLI) | payer MEDICARE ==
[2020-02-23 12:19] VITALS: BMI 33.0
[2020-04-15 15:51] LABS: EOSINOPHILS 4.9 % (0-7); HEMATOCRIT 32.9 % (42.0-54.0); HEMOGLOBIN 10.4 g/dL (13.5-17.5); IMMATURE GRANULOCYTES 0.2 % (0-5); LYMPHOCYTES 31.5 % (15-50); MCH 30.5 pg (26.0-34.0); MCHC 31.6 g/dL (31.0-37.0); MCV 96.5 fL (80.0-100.0); MEAN PLATELET VOLUME 9.8 fL (7.4-10.4); MONOCYTES 11.3 % (2-11); NEUTROPHILS 50.1 % (40-80); PLATELET COUNT 286 10x3/uL (130-400); RBC 3.41 10x6/uL (4.20-6.10); RDW 13.7 % (11.5-14.5); WBC 4.5 10x3/uL (4.8-10.8)
[2020-04-15 16:08] LABS: ALBUMIN 3.4 g/dL (3.4-5.0); ANION GAP 10.7 mmol/L (8-16); BILIRUBIN - TOTAL 0.36 mg/dL (0.2-1.3); CALCIUM 9.4 mg/dL (8.5-10.1); CARBON DIOXIDE 28.5 mmol/L (21.0-32.0); CREATININE - SERUM 1.1 mg/dL (0.6-1.3); POTASSIUM - SERUM 4.2 mmol/L (3.5-5.1); PROTEIN - SERUM 6.2 g/dL (6.4-8.2); VANCOMYCIN - TROUGH 14.2 ug/mL (10.0-20.0)
== END | disposition home or self-care (01) ==
LOC: D.LABREF 13:08
PROVIDERS: ATTEND Internal Medicine
DX: T84.59XA Infection and inflammatory reaction due to other internal joint prosthesis, initial encounter (principal); M86.9 Osteomyelitis, unspecified; B95.7 Other staphylococcus as the cause of diseases classified elsewhere

== ENCOUNTER → 2020-04-22 18:41 | Outpatient (CLI) | payer MEDICARE ==
[2020-02-23 12:19] VITALS: BMI 33.0
[2020-04-22 18:47] LABS: HEMATOCRIT 30.7 % (42.0-54.0); HEMOGLOBIN 9.8 g/dL (13.5-17.5); MCH 30.8 pg (26.0-34.0); MCHC 31.9 g/dL (31.0-37.0); MCV 96.5 fL (80.0-100.0); PLATELET COUNT 244 10x3/uL (130-400); RBC 3.18 10x6/uL (4.20-6.10); RDW 13.6 % (11.5-14.5); WBC 4.7 10x3/uL (4.8-10.8)
[2020-04-22 19:25] LABS: ALBUMIN 3.1 g/dL (3.4-5.0); BILIRUBIN - TOTAL 0.26 mg/dL (0.2-1.3); CARBON DIOXIDE 25.6 mmol/L (21.0-32.0); CREATININE - SERUM 1.2 mg/dL (0.6-1.3); POTASSIUM - SERUM 3.6 mmol/L (3.5-5.1); PROTEIN - SERUM 6.2 g/dL (6.4-8.2); VANCOMYCIN - TROUGH 14.7 ug/mL (10.0-20.0)
[2020-04-22 19:54] LABS: EOSINOPHILS 3 % (0-7); LYMPHOCYTES 19 % (15-50); MONOCYTES 6 % (2-11); NEUTROPHILS 71 % (40-80); PLATELET ESTIMATE NORMAL
[2020-04-22 19:58] LABS: BASOPHILS 0 % (0-2)
== END | disposition home or self-care (01) ==
LOC: D.LABREF 18:41
PROVIDERS: ATTEND Internal Medicine
DX: T84.59XA Infection and inflammatory reaction due to other internal joint prosthesis, initial encounter (principal); E11.69 Type 2 diabetes mellitus with other specified complication; M86.9 Osteomyelitis, unspecified; B95.7 Other staphylococcus as the cause of diseases classified elsewhere

== ENCOUNTER → 2020-04-29 22:29 | Outpatient (CLI) | payer MEDICARE ==
[2020-02-23 12:19] VITALS: BMI 33.0
[2020-04-29 22:59] LABS: BASOPHILS 0.7 % (0-2); EOSINOPHILS 1.2 % (0-7); HEMATOCRIT 29.4 % (42.0-54.0); HEMOGLOBIN 9.2 g/dL (13.5-17.5); IMMATURE GRANULOCYTES 0.3 % (0-5); LYMPHOCYTES 22.8 % (15-50); MCH 29.2 pg (26.0-34.0); MCHC 31.3 g/dL (31.0-37.0); MCV 93.3 fL (80.0-100.0); MEAN PLATELET VOLUME 9.8 fL (7.4-10.4); MONOCYTES 7.6 % (2-11); NEUTROPHILS 67.4 % (40-80); PLATELET COUNT 284 10x3/uL (130-400); RBC 3.15 10x6/uL (4.20-6.10); RDW 13.3 % (11.5-14.5)
[2020-04-29 23:24] LABS: ALBUMIN 3.1 g/dL (3.4-5.0); ANION GAP 11.1 mmol/L (8-16); BILIRUBIN - TOTAL 0.42 mg/dL (0.2-1.3); CALCIUM 9.5 mg/dL (8.5-10.1); CARBON DIOXIDE 27.8 mmol/L (21.0-32.0); CREATININE - SERUM 1.1 mg/dL (0.6-1.3); POTASSIUM - SERUM 3.9 mmol/L (3.5-5.1)
== END | disposition home or self-care (01) ==
LOC: D.LABREF 22:29
PROVIDERS: ATTEND Internal Medicine Infectious Disease
DX: T84.59XA Infection and inflammatory reaction due to other internal joint prosthesis, initial encounter (principal); M86.9 Osteomyelitis, unspecified

== ENCOUNTER 2020-06-21 19:15 | Emergency (ER) | payer MEDICARE ==
[~2020-06-21] VITALS: Ht 180.3 cm; Wt 104.5 kg
[2020-06-21 19:17] VITALS: Ht 180.3 cm; Wt 104.5 kg
[2020-06-21 20:13] LABS: BASOPHILS 0.5 % (0-2); EOSINOPHILS 1.2 % (0-7); HEMATOCRIT 35.2 % (42.0-54.0); HEMOGLOBIN 11.2 g/dL (13.5-17.5); IMMATURE GRANULOCYTES 0.2 % (0-5); LYMPHOCYTES 20.7 % (15-50); MCH 26.7 pg (26.0-34.0); MCHC 31.8 g/dL (31.0-37.0); MEAN PLATELET VOLUME 9.8 fL (7.4-10.4); MONOCYTES 11.1 % (2-11); NEUTROPHILS 66.3 % (40-80); RBC 4.19 10x6/uL (4.20-6.10); RDW 14.7 % (11.5-14.5); WBC 9.4 10x3/uL (4.8-10.8)
[2020-06-21 20:18] LABS: PLATELET COUNT 362 10x3/uL (130-400)
[2020-06-21 20:21] LABS: APTT 26.5 SECONDS (22.8-39.4); INR 1.01 (0.85-1.17); PROTIME 13.3 SECONDS (11.6-15.0)
[2020-06-21 20:40] LABS: ALBUMIN 2.6 g/dL (3.4-5.0); ALKALINE PHOSPHATASE 232 U/L (30-120); ALT (SGPT) 21 U/L (10-68); BILIRUBIN - TOTAL 0.28 mg/dL (0.2-1.3); CALC OSMOLALITY 284 mosm/kg (275-300); CALCIUM 10.5 mg/dL (8.5-10.1); CARBON DIOXIDE 28.5 mmol/L (21.0-32.0); CHLORIDE - SERUM 98 mmol/L (98-107); CREATINE KINASE 54 UL (21-232); CREATININE - SERUM 1.3 mg/dL (0.6-1.3); POTASSIUM - SERUM 4.5 mmol/L (3.5-5.1); PROTEIN - SERUM 6.3 g/dL (6.4-8.2); SODIUM 131 mmol/L (136-145); TROPONIN-I < 0.017 ng/mL (0.000-0.060); UREA NITROGEN 14 mg/dL (7-18); eGFR NON AFRICAN AMERICAN 56 mL/min (90-120)
[2020-06-21 20:42] LABS: GLUCOSE 478 mg/dL (74-106)
[2020-06-21 21:05] LABS: BILIRUBIN NEGATIVE (NEGATIVE); KETONE NEGATIVE (NEGATIVE); NITRITE NEGATIVE (NEGATIVE); UROBILINOGEN NORMAL mg/dL (< 2)
[2020-06-22 02:01] VITALS: BP 143/84
== END 2020-06-22 02:31 | disposition other institution (70) ==
LOC: D.ER 19:15
PROVIDERS: Family Medicine
DX: M00.9 Pyogenic arthritis, unspecified (principal); E11.65 Type 2 diabetes mellitus with hyperglycemia; I10 Essential (primary) hypertension; J45.909 Unspecified asthma, uncomplicated; K21.9 Gastro-esophageal reflux disease without esophagitis; Z79.4 Long term (current) use of insulin; R53.1 Weakness

== ENCOUNTER → 2020-06-26 12:31 | Outpatient (CLI) | payer MEDICARE ==
[2020-06-21 19:17] VITALS: BMI 32.1
[2020-06-26 13:44] LABS: BASOPHILS 0.5 % (0-2); HEMATOCRIT 32.5 % (42.0-54.0); HEMOGLOBIN 10.3 g/dL (13.5-17.5); IMMATURE GRANULOCYTES 0.4 % (0-5); LYMPHOCYTES 22.2 % (15-50); MCH 26.6 pg (26.0-34.0); MCHC 31.7 g/dL (31.0-37.0); MEAN PLATELET VOLUME 9.9 fL (7.4-10.4); MONOCYTES 10.8 % (2-11); NEUTROPHILS 64.1 % (40-80); PLATELET COUNT 382 10x3/uL (130-400); RBC 3.87 10x6/uL (4.20-6.10); RDW 15.2 % (11.5-14.5); WBC 7.6 10x3/uL (4.8-10.8)
[2020-06-26 14:05] LABS: ALBUMIN 2.7 g/dL (3.4-5.0); BILIRUBIN - DIRECT 0.07 mg/dL (0.00-0.30); BILIRUBIN - INDIRECT 0.2 mg/dL (0.00-1.00); BILIRUBIN - TOTAL 0.27 mg/dL (0.2-1.3); PROTEIN - SERUM 6.5 g/dL (6.4-8.2)
[2020-06-26 14:09] LABS: VANCOMYCIN - TROUGH 15.7 ug/mL (10.0-20.0)
== END | disposition home or self-care (01) ==
LOC: D.LABREF 12:31
PROVIDERS: ATTEND Orthopaedic Surgery
DX: M19.90 Unspecified osteoarthritis, unspecified site (principal)

== ENCOUNTER → 2020-06-28 12:35 | Outpatient (CLI) | payer MEDICARE ==
[2020-06-21 19:17] VITALS: BMI 32.1
--- NOTE | ~2020-06-28 | HEMODYNAMI ---
PATIENT:MARU CARUSO MEDICAL RECORD: [id number] : 40 LOCATION:DGALINA ADMISSION DATE: 06/28/20 Generatedon:06/28/202013:24 Patient name: MARU CARUSO Patient #: [id number] SSN: [id number] : 1940 Date of study: 06/28/2020 Page: Of Hemodynamic Procedure Report Patient Data Patient Demographics Procedure consent was obtained First Name: MARU Gender: Male Last Name: SHADY : 1940 Middle Initial: W Age: 79 year(s) Patient #: [id number] Race: SSN: [id number] Additional ID: [id number] Contact details [address]: [address] [place] [address] [address] State: [place] City: [facility] Zip code: [address] Past Medical History Allergies: No known allergies Admission Admission Data Admission Date: 06/28/2020 Admission Time: 12:35 Procedure Procedure Types Cath Procedure Peripheral Cath Diagnostic Procedure Miscellaneous Procedure Description Procedure Date Procedure Date: 06/28/2020 Procedure Start Time: 13:17 Procedure Staff Name Function Jourdan Morris RT Monitor Danish Samaniego MD Performing Physician Noel ESPARZA RN Nurse Procedure Data Cath Procedure Fluoroscopy Diagnostic fluoroscopy Total fluoroscopy Time: 0.1 time: 0.1 min min Diagnostic fluoroscopy Total fluoroscopy dose: 2 dose: 2 mGy mGy Hemodynamics Rest Pre Cath Intra NCS Post Cath Procedure Log Time Note 12:58:12 Use device set IR Diagnostic 12:58:14 Tegaderm 4 x 4 ([id number]) opened to sterile field. 12:58:15 Sterile Angiographic Pack opened to sterile field. 12:58:18 Bag Decanter (2002S) opened to sterile field. 13:09:17 Time tracking: Regular hours (M-F 7:00 - 5:00) 13:09:19 Jourdan Morris RT (R) (CV) sent for patient. Start room use. 13:09:38 Patient received from Other to IR Alert and oriented. Tansferred to table in Supine position. 13:09:41 Signed procedure consent form obtained from patient. 13::43 Pre-op teaching completed and patient verbalized understanding. 13::43 Pre-procedure instructions explained to patient. 13:09:51 Right chest area was prepped with chlora-prep and draped in sterile fashion 13::08 --------ALL STOP TIME OUT------ 13:: Final Timeout: patient, procedure, and site verified with staff and physician. All members of the team are in agreement. 13:13:14 Sedation plan: Local Anesthetic Medication:Lidocaine 13:13:15 Sharps counted by scrub and verified by R.N. 13:13:19 Full Disclosure recording started 13:13:19 Procedure started. 13:17:08 Local anesthetic to Chest area with Lidocaine 1% by Danish Samaniego MD.INITIAL ACCESS ONLY 13:21:20 Procedure ended.(Physican Out) 13:21:26 Fluoroscopy time 00.10 minutes. 13:21:41 Fluoroscopy dose: 2 mGy 13:21:41 Flurop Dose total: 2 13:21:45 Sharps counted by scrub and verified by R.N. 13:22:09 opsite applied site stable pt sent home 13:22:52 Full Disclosure recording stopped Device Usage Item Name Manufacture Quantity Catalog Hospital Part Current Minimal Lot# / Number Charge Number Stock Stock Serial# Code Tegaderm 4 x 3M 1 [id number] 4 (1626W) Sterile Cardinal 1 [id number] 5 Angiographic Health Pack Bag Decanter Microtek 1 [id number] 5 () [employer] Signature Audit [place] Stage Time Signature Unsigned Intra-Procedure 06/28/2020 Jourdan 1:24:21 PM Arturo RT (R) (CV) [facility] [address] [place] [address]
== END | disposition home or self-care (01) ==
LOC: D.SP 12:35
PROVIDERS: ATTEND Radiology Diagnostic Radiology
DX: T84.59XA Infection and inflammatory reaction due to other internal joint prosthesis, initial encounter (principal); E11.9 Type 2 diabetes mellitus without complications; I10 Essential (primary) hypertension; Z79.4 Long term (current) use of insulin